=== PATIENT | male | born 1985 ===

== ENCOUNTER 2020-01-21 15:20 | Emergency (ER) | payer MEDICAID, OTHER, SELFPAY ==
[2020-01-21 15:49] VITALS: BP 155/89; PULSE 86; RESP 18; TEMP 37.7; O2SAT 100; BMI 38.7
--- NOTE | 2020-01-21 16:13 | XR_ITS ---
EXAMINATION: XR CHEST CLINICAL INFORMATION: Chest pain and cough COMPARISON: None TECHNIQUE: Frontal view of the chest was obtained. FINDINGS: The lung volumes are decreased. The lungs and pleural spaces are clear. Normal cardiac size. No acute osseous abnormality. IMPRESSION: Low lung volumes. The lungs are clear.
--- NOTE | 2020-01-21 16:14 | ECG_ITS ---
Test Reason : CHEST PAIN Blood Pressure : / mmHG Vent. Rate : 084 BPM Atrial Rate : 084 BPM P-R Int : 138 ms QRS Dur : 102 ms QT Int : 372 ms P-R-T Axes : 047 -02 023 degrees QTc Int : 439 ms Normal sinus rhythm RSR' or QR pattern in V1 suggests right ventricular conduction delay Nonspecific T wave abnormality Inferior leads Abnormal ECG No previous ECGs available Referred By: Ky Rodriguez Electronically Signed By:ANGIE POWELL MD
--- NOTE | 2020-01-21 17:01 | ED.CHESTPAIN ---
HPI - Chest Pain General Chief Complaint: Chest Pain Stated Complaint: fever, headache, chest pain Time Seen by Provider: 01/21/20 16:13 History of Present Illness HPI narrative: Patient presents to ED for headache, coughing, fever, chest pain, and chills. Patient states he was exposed to his neighbor who is positive for the COVID-19 virus. Patient states now having similar symptoms. patient states chest pain when he coughs only. Patient states chest pain with cough began yesterday. MD complaint: chest pain Related Data Allergies Allergy/AdvReac Type Severity Reaction Status Date / Time No Known Allergies Allergy Verified 01/21/20 15:52 [No Known Allergies*] Review of Systems Review of Systems: Yes all other systems are reviewed and are negative Constitutional: Constitutional: Reports as per HPI, Reports body ache(s), Reports chills, Reports fatigue and Reports fever(s) ENT: Reports system reviewed and no additional complaints, except as documented Cardiovascular: Cardiovascular: Reports no additional cardiovascular complaints, Denies dyspnea and Denies dyspnea on exertion Respiratory: Respiratory: Denies pain on inspiration, Reports pain with cough, Denies dyspnea and Denies dyspnea on exertion Gastrointestinal: Gastrointestinal: Reports as per HPI, Reports no additional gastrointestinal complaints and Denies abdominal pain Musculoskeletal: Musculoskeletal: Reports no additional musculoskeletal complaints Neurologic: Reports system reviewed and no additional complaints, except as documented and Reports as per HPI Psychiatric: Psychiatric: Reports no additional psychiatric complaints and Reports as per HPI Endocrine: Endocrine: Reports fatigue [facility] Past Medical History Medical History (Updated 01/21/20 @ 15:51 by Sandrita Churchill) Hernia Social History Social History Advance Directives: No Advance Directives Information Provided: No Physical Exam Vital Signs: Vital Signs: Vital Signs Temp Pulse Resp BP Pulse Ox 01/21/20 15:49 99.8 F 86 18 155/89 H 100 Body Mass Index 38.7 Const: General: cooperative, healthy appearing, comfortable, no acute distress, well developed, alert and awake Orientation/consciousness: oriented to person, oriented to place, oriented to time and patient oriented x3 HENMT: Head: Yes normal to inspection Eyes: General: appearance normal, both eyes and all related structures Neck: Neck: Yes normal visual inspection, Yes full ROM, Yes no lymphadenopathy, No anterior neck swelling, No lymphadenopathy, No positive Brudzinski's sign and No positive Kernig's sign Chest: Chest palpation & inspection: normal inspection of the chest and tenderness ( Mild mid sternal the left chest wall tenderness on palpation) Resp: Effort & Inspection: normal respiratory effort, able to speak in complete sentences, no audible wheezes, no cough, no grunting, not labored, no nasal flaring and no respiratory distress Auscultation: clear to auscultation bilaterally, no crackles, no rales, no rhonchi and no wheezes Cardio: Jugular venous distension: no JVD Rhythm: regular rhythm Heart sounds: S1 normal heart sound present and S2 normal heart sound present GI: Inspection: Yes normal to inspection, No abdominal wall ecchymosis, No Abdominal wall edema, No distended, No Kehr's sign positive and No G-tube present Percussion: Yes normal to percussion Auscultation: normal bowel sounds : General: No CVA tenderness and Yes no CVA tenderness Back/Spine/Pelvis: Back: no CVA tenderness, No CVA tenderness and No back tenderness Skin: General skin exam: no rashes or lesions noted Neuro: General: oriented to person, oriented to place, oriented to time, patient oriented x3, gait normal and CN's II-XI intact bilaterally Cranial nerves: Yes CN's II-XII intact bilaterally Extrem: General: Yes normal to inspection and Yes full ROM Course Course Course Narrative: history physical exam indicate URI. Patient will have labs and COVID swab sent. Chest x-ray also be ordered. Reevaluation(s) Reevaluation #1: Patient present not in any distress. Patient's chest x-ray came back normal. Awaiting rest of labs. Case signed out to RENEE CHRISTIAN Time: 17:59 Reevaluation #2: Rest of labs came back normal. Patient is safe for discharge. Time: 18:03 MDM - Chest Pain MDM Narrative Medical decision making narrative: labs negative for positive troponin. D-dimer negative. Patient's perc score 0. diagnosis is URI. Lab Data Result diagrams: 01/21/20 17:16 01/21/20 17:16 Labs: Lab Results 01/21/20 01/21/20 01/21/20 Range/Units 17:16 17:16 17:16 WBC 5.0 (4.8-10.8) X10*3/uL RBC 4.78 (4.60-5.80) X10*6/uL Hgb 14.2 (14.0-18.0) g/dl Hct 43.7 (42-52) % MCV 91.4 (80-98) fL MCH 29.7 (27.0-33.0) pg MCHC 32.5 (31.0-36.0) g/dl RDW 12.9 (11.0-16.0) % Plt Count 200 (160-400) X10*3/uL MPV 10.5 (9.4-12.4) fL Immature Gran % (Auto) 0.2 (0.0-0.4) % Neut % (Auto) 57.1 (45-73) % Lymph % (Auto) 26.0 (20-40) % [place] % (Auto) 15.9 H (2-11) % Eos % (Auto) 0.6 (0-4) % Baso % (Auto) 0.2 (0-2) % Lymph # (Auto) 1.3 (1.2-4.9) X10*3/uL [place] # (Auto) 0.8 (0.1-1.2) X10*3/uL Eos # (Auto) 0.0 (0.0-0.4) X10*3/uL Baso # (Auto) 0.0 (0.0-0.2) X10*3/uL Abs Immat Gran (auto) 0.01 (0.00-0.03) X10*3/uL Absolute Neuts (auto) 2.8 (2.0-8.3) X10*3/uL Absolute Nucleated RBC 0.000 (0.0-0.012) X10*3/uL Nucleated RBC % (auto) 0.0 (0.0-0.2) /100WBC PT 12.7 (10.8-13.0) SEC INR 1.1 (0.9-1.1) APTT 29.9 (24.1-38.0) SEC D-Dimer < 200 NG/ML Sodium (135-145) mmol/L Potassium (3.3-5.1) mmol/l Chloride (96-108) mmol/L Carbon Dioxide (22-29) mmol/L Anion Gap (12-20) BUN (9-16) mg/dL Creatinine (0.5-1.4) mg/dL Estim Creat Clear Calc Estimated GFR Random Glucose (60-115) mg/dL Calcium (8.4-10.2) mg/dL Total Bilirubin (0.0-1.0) mg/dL Direct Bilirubin (0.0-0.5) mg/dL AST (5-37) U/L ALT (0-40) U/L Alkaline Phosphatase (39-117) U/L Lactate Dehydrogenase (118-273) U/L Troponin I High Sens (<3.5-35.0) ng/L B-Natriuretic Peptide (<100) pg/mL Total Protein (6.5-8.0) g/dL Albumin (3.5-5.0) g/dL 01/21/20 01/21/20 Range/Units 17:16 17:16 WBC (4.8-10.8) X10*3/uL RBC (4.60-5.80) X10*6/uL Hgb (14.0-18.0) g/dl Hct (42-52) % MCV (80-98) fL MCH (27.0-33.0) pg MCHC (31.0-36.0) g/dl RDW (11.0-16.0) % Plt Count (160-400) X10*3/uL MPV (9.4-12.4) fL Immature Gran % (Auto) (0.0-0.4) % Neut % (Auto) (45-73) % Lymph % (Auto) (20-40) % [place] % (Auto) (2-11) % Eos % (Auto) (0-4) % Baso % (Auto) (0-2) % Lymph # (Auto) (1.2-4.9) X10*3/uL [place] # (Auto) (0.1-1.2) X10*3/uL Eos # (Auto) (0.0-0.4) X10*3/uL Baso # (Auto) (0.0-0.2) X10*3/uL Abs Immat Gran (auto) (0.00-0.03) X10*3/uL Absolute Neuts (auto) (2.0-8.3) X10*3/uL Absolute Nucleated RBC (0.0-0.012) X10*3/uL Nucleated RBC % (auto) (0.0-0.2) /100WBC PT (10.8-13.0) SEC INR (0.9-1.1) APTT (24.1-38.0) SEC D-Dimer NG/ML Sodium 141 (135-145) mmol/L Potassium 4.1 (3.3-5.1) mmol/l Chloride 108 (96-108) mmol/L Carbon Dioxide 24 (22-29) mmol/L Anion Gap 13 (12-20) BUN 9 (9-16) mg/dL Creatinine 0.94 (0.5-1.4) mg/dL Estim Creat Clear Calc 136.7 Estimated GFR > 60 Random Glucose 83 (60-115) mg/dL Calcium 8.7 (8.4-10.2) mg/dL Total Bilirubin 0.8 (0.0-1.0) mg/dL Direct Bilirubin 0.3 (0.0-0.5) mg/dL AST 19 (5-37) U/L ALT 14 (0-40) U/L Alkaline Phosphatase 53 (39-117) U/L Lactate Dehydrogenase 255 (118-273) U/L Troponin I High Sens < 3.5 (<3.5-35.0) ng/L B-Natriuretic Peptide 29 (<100) pg/mL Total Protein 6.8 (6.5-8.0) g/dL Albumin 3.9 (3.5-5.0) g/dL ECG Data ECG #1: Interpretation: Normal sinus rhythm. Normal EKG. Ventricular rate 84. MI interval 138.
[2020-01-21 17:23] LABS: MANUAL DIFF FLAG NO
[2020-01-21 17:26] LABS: Basophils Percent Auto 0.2 % (0-2); Eosinophils Percent Auto 0.6 % (0-4); Hematocrit 43.7 % (42-52); Hemoglobin 14.2 g/dl (14.0-18.0); Imm Gran Abs Auto 0.01 X10*3/uL (0.00-0.03); Imm Gran Pct Auto 0.2 % (0.0-0.4); Lymphocytes Absolute Auto 1.3 X10*3/uL (1.2-4.9); Mean Corpuscular HGB Conc 32.5 g/dl (31.0-36.0); Mean Corpuscular Hemoglobin 29.7 pg (27.0-33.0); Mean Corpuscular Volume 91.4 fL (80-98); Mean Platelet Volume 10.5 fL (9.4-12.4); Monocytes Absolute Auto 0.8 X10*3/uL (0.1-1.2); Monocytes Percent Auto 15.9 % (2-11); Neutrophils Absolute Auto 2.8 X10*3/uL (2.0-8.3); Neutrophils Percent Auto 57.1 % (45-73); Platelet Count 200 X10*3/uL (160-400); Red Blood Count 4.78 X10*6/uL (4.60-5.80); Red Cell Distribution Width 12.9 % (11.0-16.0)
[2020-01-21 17:31] LABS: INTERNATIONAL NORM RATIO 1.1 (0.9-1.1); Prothrombin Time 12.7 SEC (10.8-13.0)
[2020-01-21 17:34] LABS: Partial Thromboplastin Time 29.9 SEC (24.1-38.0)
--- NOTE | 2020-01-21 17:34 | PC.NURSE ---
per david galloway ok to not give 1l ns. pt pending lab results
[2020-01-21 17:35] LABS: D Dimer < 200 NG/ML
[2020-01-21 17:50] LABS: Alanine Aminotransferase 14 U/L (0-40); Albumin Level 3.9 g/dL (3.5-5.0); Alkaline Phosphatase 53 U/L (39-117); Anion Gap 13 (12-20); Aspartate Amino Transferase 19 U/L (5-37); Bilirubin Direct 0.3 mg/dL (0.0-0.5); Bilirubin Total 0.8 mg/dL (0.0-1.0); Blood Urea Nitrogen 9 mg/dL (9-16); Calcium 8.7 mg/dL (8.4-10.2); Carbon Dioxide 24 mmol/L (22-29); Chloride 108 mmol/L (96-108); Creatinine Clr Calc Pharmacy 136.7; Estimated Glomerular Filt Rate > 60; Glucose Random 83 mg/dL (60-115); Lactate Dehydrogenase 255 U/L (118-273); Potassium 4.1 mmol/l (3.3-5.1); Sodium 141 mmol/L (135-145); Total Protein 6.8 g/dL (6.5-8.0)
[2020-01-21 17:51] LABS: B Type Natriuretic Peptide 29 pg/mL (<100); Troponin-I High Sensitivity < 3.5 ng/L (<3.5-35.0)
[2020-01-21 18:05] LABS: Procalcitonin 0.03 ng/mL
[2020-01-21 18:09] LABS: Ferritin 103 ng/mL (20-250)
[2020-01-21 18:15] VITALS: BP 148/88; PULSE 88; RESP 16; TEMP 37.1; O2SAT 99
[2020-01-21 18:37] VITALS: PULSE 88
== END 2020-01-21 18:38 | disposition home or self-care (01) ==
PROVIDERS: Physician Assistant; Emergency Provider Emergency Medicine
DX: U07.1 COVID-19 (principal); M94.0 Chondrocostal junction syndrome [Tietze]
CPT/HCPCS: 36415; 71045; 80053; 80076; 82728; 83615; 83880; 84145; 84484; 85025; 85379; 85610; 85730; 87635; 93005; 96360; 99284

== ENCOUNTER 2020-02-12 15:22 | Outpatient (REF) | payer OTHER, MEDICAID, SELFPAY | END 2020-02-12 15:23 | disposition home or self-care (01) | LOC: HO.LAB 15:22 | PROVIDERS: Visit Provider Internal Medicine | DX: Z20.828 Contact with and (suspected) exposure to other viral communicable diseases (principal) | CPT/HCPCS: C9803; U0003 ==

== ENCOUNTER 2021-02-18 13:26 | Emergency (ER) | payer OTHER, SELFPAY ==
--- NOTE | ~2021-02-18 | XR_ITS ---
EXAMINATION: XR THORACIC SPINE CLINICAL INFORMATION: Fall, trauma, back pain COMPARISON: Chest radiographs 01/21/2020 TECHNIQUE: 4 views of the thoracic spine were obtained. FINDINGS: There is normal thoracic segmentation with 12 rib-bearing thoracic vertebrae of normal height and normal thoracic kyphosis. There is no visible thoracic vertebral fraction or fracture. No focal disc narrowing or spondylolisthesis or erosive changes. No paraspinal soft tissue swelling. XR/XR thoracic spine 3V IMPRESSION: Unremarkable examination.
--- NOTE | ~2021-02-18 | XR_ITS ---
EXAMINATION: XR LUMBOSACRAL SPINE CLINICAL INFORMATION: Fall, trauma, pain COMPARISON: Thoracic spine radiographs 02/18/2021 TECHNIQUE: Three views of the lumbosacral spine. FINDINGS: There is normal lumbar segmentation with 5 nonrib-bearing lumbar vertebrae of normal height and normal lumbar lordosis. There is no lumbar vertebral compression or fracture or spondylolisthesis. No disc narrowing or destructive process. The SI joints and visualized sacrum are unremarkable. There are surgical tacks overlying the anterior abdomen from prior mesh/hernia repair. XR/XR lumbar spine 2-3V IMPRESSION: Unremarkable examination.
[2021-02-18 14:01] VITALS: BP 155/89; PULSE 79; RESP 18; TEMP 36.6; O2SAT 98; BMI 36.9
--- NOTE | 2021-02-18 14:16 | ED_ITS ---
HPI - Back Pain/Injury General Chief Complaint: Back Pain/Injury Stated Complaint: Back pain Time Seen by Provider: 02/18/21 14:16 Source: patient Mode of arrival: ambulatory Limitations: no limitations History of Present Illness HPI Narrative: 35-year-old male presenting to the ER with left foot pain, middle and low back pain after a slip and fall while at work yesterday. 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 He fell onto his back and did not hit his head. He reports pain up and down his entire back worse in the middle and lower areas. No headache. He has some bilateral neck pain but nothing centrally. No arm pain, weakness, tingling. Pain is worse with movement. He has not taken any medications for his pain. He denies any numbness or tingling down his legs, no urinary incontinence, no fevers. No history of IV drug use. MD elicited complaint: back pain, back injury and fall Pertinent past history: recent trauma Onset (ago): day(s) (1) Timing: progressively worsening Severity: moderate Pain scale (0-10): 7 Quality: aching, spasming and throbbing Location: right lower back, right upper back, left upper back and left lower back Radiation: neck Exacerbating factors: movement Context: fall Associated symptoms: denies other symptoms Work related injury: Yes Related Data Previous Rx's Medication Instructions Recorded benzonatate 100 mg capsule 100 mg PO TID #15 cap 01/21/20 (Kodi Irvin) naproxen 500 mg tablet 500 mg PO BID PRN #20 tab 01/21/20 cyclobenzaprine 10 mg tablet 10 mg PO TID PRN #20 tab 02/18/21 ibuprofen 600 mg tablet 600 mg PO Q8H PRN #20 tab 02/18/21 lidocaine 5 % topical patch 1 patch TOPICAL DAILY #15 ea 02/18/21 Allergies Allergy/AdvReac Type Severity Reaction Status Date / Time No Known Allergies Allergy Verified 01/21/20 15:52 [No Known Allergies*] Review of Systems Review of Systems: Constitutional: No Fever, No Chills ENT/Mouth: No sore throat, No Rhinorrhea, No Swallowing Difficulty Cardiovascular: No Chest Pain, No SOB Gastrointestinal: No Nausea, No Vomiting, No Diarrhea, No abdominal Bryant Genitourinary: No Dysuria, No Urinary Frequency, No Hematuria Musculoskeletal: + joint pain, + Myalgias Skin: No Skin Lesions, No rash Neuro: No Weakness, No Numbness, No Dizziness, No Headache Heme/Lymph: No Bruising, No Lymphadenopathy PMF Past Medical History Medical History (Updated 02/18/21 @ 15:50 by RENEE Beltran) Hernia Social History Social History Alcohol intake: never Advance Directives: No Advance Directives Information Provided: No Physical Exam Vital Signs: Vital Signs: Last Vital Signs Temp 97.9 F 02/18/21 14:01 Pulse 79 02/18/21 14:01 Resp 18 02/18/21 14:01 BP 155/89 H 02/18/21 14:01 Pulse Ox 98 02/18/21 14:01 Body Mass Index 36.9 Appearance: Alert. Oriented X3. No acute distress. Eyes: Pupils equal, round and reactive to light. ENT: Pharynx normal. No dental trauma. Neck: Normal inspection. Neck supple. No midline tenderness or step-off deformity. Normal range of motion. Soft tissue tenderness and spasm bilaterally. CVS: Normal heart rate and rhythm. Pulses normal. Respiratory: No respiratory distress. Breath sounds normal. Abdomen: Soft and nontender. +BS x4 Back: Normal inspection. Bilateral paraspinous muscle tenderness and spasm appreciated from the middle thoracic to lower lumbar areas. No spinal tenderness throughout. Normal spinal range of motion. Skin: Skin warm and dry. Normal skin color. Normal skin turgor. No rashes. Extremities: Atraumatic x4 Neuro: Oriented X 3. No motor deficit. No sensory deficit. Ambulates with a slow but steady gait. Course Course Course Narrative: 35-year-old male presenting with back pain, left foot pain and neck pain after a slip and fall at work yesterday. His pain seems to be muscular. Doubt acute fracture. His left foot is normal in appearance and he is ambulatory. He has diffuse muscle tenseness today and spasm. Will treat with muscle relaxer and anti-inflammatory now. Will get x-rays to rule out fracture. Reevaluation(s) Reevaluation #1: X-rays are negative for acute fracture. Will treat symptomatically with muscle relaxer, anti-inflammatories and Lidoderm patches. Work note provided. Patient is stable for discharge home with supportive care plan to follow-up with his doctor as needed. Discharge Plan Discharge Clinical Impression: Strain of lumbar region Qualifiers: Encounter type: initial encounter Qualified Code(s): S39.012A - Strain of muscle, fascia and tendon of lower back, initial encounter Thoracic back pain Qualifiers: Chronicity: acute Back pain laterality: bilateral Qualified Code(s): M54.6 - Pain in thoracic spine Patient Disposition: Home, Self-Care Instructions: Low Back Strain (ED), Lower Back Exercises (ED) Additional Instructions: Your x-rays today were normal. Your pain is most likely due to muscle strain and spasm. No bending, lifting or twisting. Use ice several times per day for 20 minutes at a time for the next 48 hours and then change to heat. Take medications as prescribed to help with pain and discomfort. Follow up with your Primary Care Doctor this week. If your pain worsens, if you develop new numbness, tingling, weakness, loss of function or incontinence call 911 or come back to the ER right away for evaluation. Prescriptions: New cyclobenzaprine 10 mg tablet 10 mg PO TID PRN (Reason: muscle spasm) Qty: 20 RF: 0 lidocaine 5 % adhesive patch,medicated 1 patch topical DAILY Qty: 15 RF: 0 ibuprofen 600 mg tablet 600 mg PO Q8H PRN (Reason: pain) Qty: 20 RF: 0 No Action benzonatate [Tessalon Perles] 100 mg capsule 100 mg PO TID Qty: 15 RF: 0 naproxen 500 mg tablet 500 mg PO BID PRN (Reason: pain) Qty: 20 RF: 0 Referrals: [facility] [Provider Group] - 2 days Stand Alone Forms: Work/School Release Print Language: Hungarian
[2021-02-18] MEDS: Ketorolac Tromethamine 15 MG/ML VIAL 30 MG IM (14:57)
[2021-02-18] MEDS: Cyclobenzaprine HCl 10 MG TABLET PO (14:57)
[2021-02-18 15:56] VITALS: BP 127/83; PULSE 59; RESP 16; TEMP 36.5; O2SAT 99
== END 2021-02-18 16:03 | disposition home or self-care (01) ==
PROVIDERS: Emergency Provider Emergency Medicine Emergency Medical Services
DX: M54.50 Low back pain, unspecified (principal); M54.6 Pain in thoracic spine; M79.672 Pain in left foot; Z79.899 Other long term (current) drug therapy
CPT/HCPCS: 72072; 72100; 96372; 99284; J1885

== ENCOUNTER 2021-03-06 12:51 | Emergency (ER) | payer OTHER, SELFPAY ==
[2021-03-06 12:57] VITALS: BP 149/80; PULSE 79; RESP 18; TEMP 36.6; O2SAT 98; BMI 36.5
--- NOTE | 2021-03-06 13:21 | ED.BACK ---
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 Patient states approximately 2 weeks prior he had himself work. 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 Patient was put on Naprosyn patches without any relief. Patient still has pain and left-sided increases with range of motion or palpation. Patient denies any loss of bowel movements urinary incontinence. No other complaints at this time no new trauma to the back. Related Data Previous Rx's Medication Instructions Recorded benzonatate 100 mg capsule 100 mg PO TID #15 cap 01/21/20 (Kodi Irvin) naproxen 500 mg tablet 500 mg PO BID PRN #20 tab 01/21/20 cyclobenzaprine 10 mg tablet 10 mg PO TID PRN #20 tab 02/18/21 ibuprofen 600 mg tablet 600 mg PO Q8H PRN #20 tab 02/18/21 lidocaine 5 % topical patch 1 patch TOPICAL DAILY #15 ea 02/18/21 methocarbamol 750 mg tablet 750 mg PO BEDTIME #20 tab 03/06/21 naproxen 500 mg tablet,delayed 500 mg PO BID PRN #30 tab 03/06/21 release (EC-Naproxen) prednisone 20 mg tablet 40 mg PO DAILY 5 Days #10 tab 03/06/21 Allergies Allergy/AdvReac Type Severity Reaction Status Date / Time No Known Allergies Allergy Verified 01/21/20 15:52 [No Known Allergies*] Review of Systems Constitutional: Constitutional: Denies chills, Denies fever(s) and Denies weakness Cardiovascular: Cardiovascular: Denies chest pain and Denies dyspnea Respiratory: Respiratory: Denies cough and Denies dyspnea Gastrointestinal: Gastrointestinal: Denies diarrhea, Denies nausea and Denies vomiting Genitourinary: Genitourinary: Denies flank pain Musculoskeletal: Musculoskeletal: Reports back pain and Denies muscle weakness Neurologic: Denies radicular pain and Denies weakness Endocrine: Endocrine: Reports no additional endocrine complaints Hematologic/Lymphatic: Hematologic/Lymphatic: Reports no additional hematologic/lymphatic complaints [facility] Past Medical History Attestation statement: The following information was validated with the patient. Medical History Hernia Social History Social History Alcohol intake: never Advance Directives: No Advance Directives Information Provided: No Physical Exam Vital Signs: Vital Signs: Last Vital Signs Temp 98 F 03/06/21 12:57 Pulse 79 03/06/21 12:57 Resp 18 03/06/21 12:57 BP 149/80 H 03/06/21 12:57 Pulse Ox 98 03/06/21 12:57 BMI result Body Mass Index 36.5 vital signs have been reviewed as normal and appeared to be correct. Blood pressure normal. Heart rate normal. Respiration rate normal. Temperature normal. Oxygen saturation normal. Appearance: Alert. Oriented X3. No acute distress. Head: Normal external exam. Normocephalic. Atraumatic. Eyes: PERRLA. EOMI. Conjunctiva and sclera normal. Eyelids normal. ENT: Pharynx normal. Uvula midline. Moist mucous membranes. Neck: Soft full range of motion, no JVD CVS: Heart regular rate and rhythm no murmurs and rubs Respiratory: Breath sounds are clear to auscultation bilaterally. No accessory muscle use noted. Abdomen: Soft nontender no rebound or guarding positive bowel sounds Back: Positive paraspinal muscle tenderness lumbar spine left greater than right. tenderness extends left paraspinal muscle to the mid back Skin: Skin warm and dry. Normal skin color. No rashes ecchymosis Extremities: Patient is ambulatory moving all extremities purposely Neuro: Oriented X 3. No motor deficit. No sensory deficit. Reflexes normal. No focal deficit Course Course Course Narrative: Lumbar strain Disc disease Sciatica Muscle spasm Patient courage to follow-up with PCP. Patient denies history of diabetes will place patient on prednisone Naprosyn and Robaxin for nighttime Discharge Plan Discharge Clinical Impression: Strain of lumbar region Qualifiers: Encounter type: subsequent encounter Qualified Code(s): S39.012D - Strain of muscle, fascia and tendon of lower back, subsequent encounter Patient Disposition: Home, Self-Care Instructions: Back Pain (ED) Additional Instructions: Follow-up with PCP is recommended Medication as directed Prescriptions: New prednisone 20 mg tablet 40 mg PO DAILY 5 Days Qty: 10 RF: 0 methocarbamol 750 mg tablet 750 mg PO BEDTIME Qty: 20 RF: 0 naproxen [EC-Naproxen] 500 mg tablet,delayed release (DR/EC) 500 mg PO BID PRN (Reason: pain) Qty: 30 RF: 0 No Action benzonatate [Tessalon Perles] 100 mg capsule 100 mg PO TID Qty: 15 RF: 0 naproxen 500 mg tablet 500 mg PO BID PRN (Reason: pain) Qty: 20 RF: 0 cyclobenzaprine 10 mg tablet 10 mg PO TID PRN (Reason: muscle spasm) Qty: 20 RF: 0 lidocaine 5 % adhesive patch,medicated 1 patch topical DAILY Qty: 15 RF: 0 ibuprofen 600 mg tablet 600 mg PO Q8H PRN (Reason: pain) Qty: 20 RF: 0 Stand Alone Forms: Work/School Release Print Language: Citizen Of [place]
== END 2021-03-06 13:55 | disposition home or self-care (01) ==
PROVIDERS: Emergency Provider Emergency Medicine; PCP Family Medicine
DX: S39.012D Strain of muscle, fascia and tendon of lower back, subsequent encounter (principal); X58.XXXD Exposure to other specified factors, subsequent encounter
CPT/HCPCS: 99283

== ENCOUNTER → 2021-06-26 11:07 | Outpatient (BNVA) | payer OTHER, SELFPAY | PROVIDERS: PCP Family Medicine; Referring Provider Family Medicine; Visit Provider Surgery | DX: K42.9 Umbilical hernia without obstruction or gangrene (principal) | CPT/HCPCS: 99202 ==

== ENCOUNTER 2021-07-07 07:47 | Outpatient (REF) | payer OTHER, SELFPAY ==
[2021-07-07 10:43] LABS: MANUAL DIFF FLAG NO
[2021-07-07 10:45] LABS: Basophils Percent Auto 0.4 % (0-2); Eosinophils Absolute Auto 0.5 X10*3/uL (0.0-0.4); Eosinophils Percent Auto 6.8 % (0-4); Hematocrit 45.6 % (42.0-52.0); Hemoglobin 14.8 g/dl (14.0-18.0); Imm Gran Abs Auto 0.02 X10*3/uL (0.00-0.03); Imm Gran Pct Auto 0.3 % (0.0-0.4); Lymphocytes Absolute Auto 2.9 X10*3/uL (1.2-4.9); Lymphocytes Percent Auto 39.6 % (20-40); Mean Corpuscular HGB Conc 32.5 g/dl (31.0-36.0); Mean Corpuscular Volume 89.4 fL (80.0-98.0); Mean Platelet Volume 10.9 fL (9.4-12.4); Monocytes Absolute Auto 0.5 X10*3/uL (0.1-1.2); Monocytes Percent Auto 7.1 % (2-11); Neutrophils Absolute Auto 3.3 x10*3/uL (2.0-8.3); Neutrophils Percent Auto 45.8 % (45-73); Platelet Count 259 X10*3/uL (160-400); Red Cell Distribution Width 12.7 % (11.0-16.0); White Blood Count 7.2 X10*3/uL (4.8-10.8)
[2021-07-07 10:59] LABS: Alanine Aminotransferase 16 U/L (0-40); Alkaline Phosphatase 56 U/L (39-117); Anion Gap 11 (12-20); Aspartate Amino Transferase 13 U/L (5-37); Bilirubin Total 1.3 mg/dL (0.0-1.0); Blood Urea Nitrogen 12 mg/dL (9-16); Calcium 9.3 mg/dL (8.4-10.2); Carbon Dioxide 25 mmol/L (22-29); Chloride 109 mmol/L (96-108); Cholesterol 163 mg/dL; Estimated Glomerular Filt Rate > 60; Glucose Fasting 96 mg/dL (60-99); HDL Cholesterol 39 mg/dL; LDL Cholesterol Calculated 110 mg/dl; Sodium 141 mmol/L (135-145); Total Protein 6.9 g/dL (6.5-8.0); Triglycerides 74 mg/dL
[2021-07-07 11:25] LABS: TSH reflex Free T4 2.27 uIU/mL (0.32-4.0)
[2021-07-07 11:26] LABS: Erythrocyte Sedimentation Rate 3 MM/HR (0-15)
== END 2021-07-07 07:48 | disposition home or self-care (01) ==
LOC: HO.WFDLDS 07:47
PROVIDERS: Visit Provider Family Medicine
DX: Z00.00 Encounter for general adult medical examination without abnormal findings (principal); M54.9 Dorsalgia, unspecified; Z13.220 Encounter for screening for lipoid disorders; Z13.29 Encounter for screening for other suspected endocrine disorder
CPT/HCPCS: 36415; 80053; 80061; 84443; 85025; 85652

== ENCOUNTER 2022-10-26 08:52 | Emergency (ER) | payer OTHER, SELFPAY ==
--- NOTE | ~2022-10-26 | CT_ITS ---
EXAMINATION: CT ABDOMEN AND PELVIS WITH CONTRAST CLINICAL INFORMATION: Left lower quadrant abdominal pain COMPARISON: None available. TECHNIQUE: Multidetector volumetric images were obtained from the superior aspect of the liver through the pubic symphysis following administration 85 mL of Omnipaque 350 intravenous contrast. Sagittal and coronal reformatted images were obtained on the technologist's workstation. Oral contrast: No This CT examination was performed using dose optimization techniques as appropriate, variously including the following: *Automated exposure control *Adjustment of mA and/or kV according to patient size (this includes techniques or standardized protocols for targeted exams where dose is matched to indication/reason for exam; i.e. extremities or head) *Use of iterative reconstruction technique DLP: 819 mGy-cm FINDINGS: LUNG BASES: Bibasilar atelectasis. LIVER, GALLBLADDER, AND BILIARY TREE: The liver is normal in size and shape. Slightly decreased hepatic attenuation suggesting hepatic steatosis. Subcentimeter hypodense focus in the right hepatic lobe (series 4, image 164), too small to characterize though statistically representing a cyst. No biliary ductal dilatation is present. The gallbladder is unremarkable with no evidence of radiopaque gallstones, gallbladder wall thickening, or obvious pericholecystic inflammatory changes. PANCREAS: Unremarkable. SPLEEN: Unremarkable. ADRENAL GLANDS: Unremarkable. KIDNEYS AND URETERS: Subcentimeter hypodense focus involving the lateral aspect of the right renal interpolar region demonstrating fluid attenuation to small to characterize though statistically representing a cyst. The kidneys are normal in size, shape, and attenuation. No hydronephrosis, hydroureter, or calculi seen. No perinephric stranding. BLADDER: Unremarkable. GASTROINTESTINAL TRACT: The small and large bowel are unremarkable. The appendix is unremarkable. MESENTERY: Within the left lower quadrant anterior to the descending/sigmoid colon is a subtle ovoid structure with peripheral enhancement and adjacent inflammatory changes measuring approximately 3.2 cm possibly representing elements of epiploic appendagitis (series 3, image 70). Correlation with symptomatology. ABDOMINAL WALL: Fat filled ventral hernia. Anterior abdominal wall hernia mesh. Trace fat filled right inguinal hernia. LYMPH NODES: A few mildly prominent though nonenlarged bilateral inguinal lymph nodes are noted. VASCULAR: Abdominal aorta is nonaneurysmal. PELVIC VISCERA: Prostate measures 4.7 cm. Trace free fluid noted in the pelvis. OSSEOUS STRUCTURES: Nonspecific sclerotic foci in the left iliac bone possibly representing bone islands largest measuring up to [address]/CT abdomen pelvis w IV con IMPRESSION: Within the left lower quadrant anterior to the descending/sigmoid colon is a subtle ovoid structure with peripheral enhancement and adjacent inflammatory changes measuring approximately 3.2 cm possibly representing elements of epiploic appendagitis. Correlation with symptomatology.
--- NOTE | ~2022-10-26 | US_ITS ---
EXAMINATION: US SCROTUM CLINICAL INFORMATION: Bilateral testicular discomfort. COMPARISON: None available. TECHNIQUE: A sonogram of the scrotum was performed assessing khan-scale appearance and color Doppler flow. Spectral Doppler analysis of the arterial and venous flow were performed in the testes bilaterally. FINDINGS: RIGHT: Right testicle measures 4.2 x 2.1 x 2.6 cm, volume 12.1 mL. No focal testicular parenchymal lesions are visualized. Spectral Doppler analysis of the arterial and venous flow is increased in the right testis. Right epididymal head is normal in size. No right hydrocele or varicocele is seen. Right epididymal Doppler flow is mildly increased. LEFT: Left testicle measures 4.4 x 2.2 x 2.8 cm, volume 14.1 mL. No focal testicular parenchymal lesions are visualized. Spectral Doppler analysis of the arterial and venous flow is mildly increased in the left testis. Left epididymal head is normal in size. No left hydrocele or varicocele is seen. Left epididymal Doppler flow is normal. US/US scrotum IMPRESSION: 1. Bilateral testicular vascular flow is visualized. 2. Increased vascular flow of the right testicular parenchyma with mildly increased flow in the right epididymis suggesting epididymal orchitis. Correlation with symptomatology. 3. Mildly increased vascular flow of the left testicular parenchyma possibly representing early left orchitis.
--- NOTE | ~2022-10-26 | US_ITS ---
EXAMINATION: US SCROTUM CLINICAL INFORMATION: Bilateral testicular discomfort. COMPARISON: None available. TECHNIQUE: A sonogram of the scrotum was performed assessing khan-scale appearance and color Doppler flow. Spectral Doppler analysis of the arterial and venous flow were performed in the testes bilaterally. FINDINGS: RIGHT: Right testicle measures 4.2 x 2.1 x 2.6 cm, volume 12.1 mL. No focal testicular parenchymal lesions are visualized. Spectral Doppler analysis of the arterial and venous flow is increased in the right testis. Right epididymal head is normal in size. No right hydrocele or varicocele is seen. Right epididymal Doppler flow is mildly increased. LEFT: Left testicle measures 4.4 x 2.2 x 2.8 cm, volume 14.1 mL. No focal testicular parenchymal lesions are visualized. Spectral Doppler analysis of the arterial and venous flow is mildly increased in the left testis. Left epididymal head is normal in size. No left hydrocele or varicocele is seen. Left epididymal Doppler flow is normal. US/US scrotum doppler IMPRESSION: 1. Bilateral testicular vascular flow is visualized. 2. Increased vascular flow of the right testicular parenchyma with mildly increased flow in the right epididymis suggesting epididymal orchitis. Correlation with symptomatology. 3. Mildly increased vascular flow of the left testicular parenchyma possibly representing early left orchitis.
[2022-10-26 08:57] VITALS: BP 141/82; PULSE 91; RESP 12; TEMP 36.6; BMI 37.3
[2022-10-26 09:44] VITALS: BP 153/84; PULSE 91; RESP 18; TEMP 36.8; O2SAT 98
--- NOTE | 2022-10-26 09:55 | PC.NURSE ---
pt a&ox3. respirations even and unlabored. skin appropriate for ethnicity. abdomen soft with hypoactive bowel sounds in all 4 quadrants with tenderness mostly in the right lower quadrant but some pain in the left lower quadrant. pt reports lower abdominal pain and flank pain for 3 days as well as difficulty urinating. pt denies n/v and blood in urine.
--- NOTE | 2022-10-26 09:57 | ED_ITS ---
HPI - Abdominal Pain General Chief Complaint: Abdominal Pain Stated Complaint: Lower abd pain Time Seen by Provider: 10/26/22 09:07 Source: patient Mode of arrival: ambulatory Limitations: no limitations History of Present Illness HPI narrative: This is a 37-year-old male history of hypertension, umbilical hernia, obesity presenting to the emergency department for evaluation of left lower quadrant pain for the past 3 days worsening. Patient reports constant stabbing left lower quadrant pain and associated dysuria, patient tells me that pain is intolerable at this time worse with palpation. Patient also reports poor p.o. intake secondary to pain in associated nausea. Patient does mention that at times his pain radiates into his testicles bilaterally. Denies vomiting, chest pain, shortness of breath, fevers, chills, urinary frequency, urgency, changes in bowel habits, . no history of kidney stones or diverticulitis Related Data Previous Rx's Medication Instructions Recorded benzonatate 100 mg capsule 100 mg PO TID cough #15 caps 01/21/20 (Kodi Irvin) cyclobenzaprine 10 mg tablet 10 mg PO BEDTIME PRN muscle spasm 06/02/21 7 days #20 tabs losartan 50 mg tablet 50 mg PO DAILY 30 days #30 tabs 06/02/21 meloxicam 15 mg tablet 15 mg PO DAILY 30 days #30 tabs 06/02/21 doxycycline hyclate 100 mg capsule 100 mg PO BID 10 days #20 caps 10/26/22 ketorolac 10 mg tablet 10 mg PO TID PRN pain 5 days #15 10/26/22 tabs Allergies Allergy/AdvReac Type Severity Reaction Status Date / Time No Known Allergies Allergy Verified 07/08/21 14:43 [No Known Allergies*] Review of Systems Review of Systems Constitutional : No Weight loss, No Fever, No Chills, No Fatigue, No Malaise ENT/Mouth : No sore throat, No Rhinorrhea Eyes: No Eye Pain, No Swelling, No Redness Cardiovascular : No Chest Pain, No SOB, No Dyspnea on Exertion, No Orthopnea, No Edema, No Palpitations Respiratory : No Cough, No Sputum, No Wheezing Gastrointestinal : + Nausea, No Vomiting, No Diarrhea, No Constipation, + abdominal Pain, No Hematochezia, No Melena Genitourinary : No Dysuria, No Urinary Frequency, No Hematuria, Musculoskeletal : No joint pain, No Myalgias, No Joint Swelling Skin : No Skin Lesions, No rash Neuro : No Weakness, No Numbness, No Dizziness, No Headache Psych : No Anxiety/Panic, No Depression All other systems reviewed and are negative Yes all other systems are reviewed and are negative [facility] Past Medical History Attestation statement: The following information was validated with the patient. Source: old records reviewed and nursing notes reviewed Medical History Hernia Hypertension Morbid obesity with body mass index (BMI) of 40.0 or higher Recurrent umbilical hernia Surgical History History of hernia surgery Social History Social History Housing: Apartment Alcohol intake: never Patient Tobacco Use Status: Never used Tobacco Smoked in Last 30 Days: No e-Cigarette/Vaping Use: Never Used Second Hand Smoke Exposure: No Use of substances other than those prescribed or required for medical reasons: No Advance Directives: No Advance Directives Information Provided: No service: No Current occupational status: employed Current occupational exposures/hazards: No Cognitive needs: No Hearing needs: No Vision needs: No Physical Exam ED Vital Signs: Vital Signs - 24 hr 10/26/22 08:57 10/26/22 09:44 10/26/22 11:17 Temperature 97.9 F 98.3 F 98.2 F Pulse Rate 91 91 63 Respiratory Rate 12 18 18 Blood Pressure 141/82 H 153/84 H 136/87 Pulse Oximetry 98 99 Oxygen Delivery Method Room Air Room Air Room Air BMI result Body Mass Index 37.3 vss Appearance: Alert.? Oriented X3.? No acute distress.? Head: Normocephalic, atraumatic, no step-offs or deformities Eyes: Pupils equal, round and reactive to light.? Neck: Normal inspection.? Neck supple.? CVS: Normal heart rate and rhythm.? Pulses normal.? Respiratory: No respiratory distress.? Breath sounds normal.? Abdomen: Soft and + left lower quadrant tenderness to palpation..? Skin: Skin warm and dry.? Normal skin color.? Normal skin turgor.? Extremities: No lower extremity edema.? No calf ttp. 5/5 strength to bilateral upper and lower extremities Neuro: Oriented X 3.? No motor deficit.? No sensory deficit. CN 2-12 intact Course Reevaluation(s) Reevaluation #1: CBC within normal limits. Chemistry unremarkable. Lipase within normal limits. Ultrasound of scrotum with bilateral testicular vascular flow, no signs of torsion. Increased vascular flow the right testicular parenchyma with mildly increased flow in the right epididymis suggesting epididymal orchitis, patient doesnt think he has an STD but will treat with Ceftriaxone and doxy to cover prophylacticly. Patient also has mildly increased vascular flow on the left testicular parenchyma possibly representing early left orchitis. Will give IM ceftriaxone here in treat with doxycycline for home. Waiting on CT abdomen and pelvis. Will also give him follow-up to Urology. Time: 12:30 Reevaluation #2: CT abdomen and pelvis revealing left lower quadrant anterior to the descending sigmoid colon subtle ovoid structure with peripheral enhancement adjacent inflammatory changes could represent epiploic appendagitis, discussed this case w/ my attending agrees w/ dx and tx plan. patient feeling better after Toradol. Will discharge him home on same. Will discharge with doxycycline for orchitis. Educated patient on diagnosis and treatment plan, answered all question, patient verbalizes understanding. At this time patient will be discharged home, advised to return with new or worsening symptoms. Educated on worrisome signs and symptoms and when to return. At this time I feel comfortable discharge home. Time: 13:11 Reevaluation #3: at time of discharge patient reports significant symptomatic improvement with Toradol. Well appearing. Vital stable, abdomen no longer tender to palpation. Medical Decision Making Medical Decision Making [facility] Narrative: 1001 37-year-old male presents with left lower quadrant pain x3 days with associated nausea, reports dysuria and bilateral testicular pain physical exam with significant left lower quadrant tenderness to palpation. Likely diverticulitis or kidney stone. Will rule out Testicular torsion although less likely. unlikely acute abdomen. No signs of appendicitis, cholecystitis or pancreatitis. Also rule out UTI. He has no concern for STD/ STI unlikely proctitis, orchitis epididymitis. Plan labs, imaging, urine. Differential Diagnosis Differential Diagnoses: The differential diagnosis associated with the presentation includes Likely diverticulitis or kidney stone. Will rule out Testicular torsion although less likely. unlikely acute abdomen. No signs of appendicitis, cholecystitis or pancreatitis. Also rule out UTI. He has no concern for STD/ STI unlikely proctitis, orchitis epididymitis. Admission/Observation Consideration of admission/observation: Escalation of care including admission/observation considered unlikely Lab Data MDM Lab Attestation statement: I reviewed the patient's lab results. 10/26/22 10:22 10/26/22 10:22 Labs: Lab Results 10/26/22 10/26/22 10/26/22 Range/Units 10:22 10:22 10:22 WBC 9.2 (4.8-10.8) X10*3/uL RBC 4.64 (4.60-5.80) X10*6/uL Hgb 13.6 L (14.0-18.0) g/dl Hct 42.0 (42.0-52.0) % MCV 90.5 (80.0-98.0) fL MCH 29.3 (27.0-33.0) pg MCHC 32.4 (31.0-36.0) g/dl RDW 13.5 (11.0-16.0) % Plt Count 231 (160-400) X10*3/uL MPV 10.6 (9.4-12.4) fL Immature Gran % (Auto) 0.3 (0.0-0.4) % Neut % (Auto) 59.8 (45-73) % Lymph % (Auto) 28.3 (20-40) % [place] % (Auto) 9.8 (2-11) % Eos % (Auto) 1.5 (0-4) % Baso % (Auto) 0.3 (0-2) % Lymph # (Auto) 2.6 (1.2-4.9) X10*3/uL [place] # (Auto) 0.9 (0.1-1.2) X10*3/uL Eos # (Auto) 0.1 (0.0-0.4) X10*3/uL Baso # (Auto) 0.0 (0.0-0.2) X10*3/uL Abs Immat Gran (auto) 0.03 (0.00-0.03) X10*3/uL Absolute Neuts (auto) 5.5 (2.0-8.3) x10*3/uL Absolute Nucleated RBC 0.000 (0.0-0.012) X10*3/uL Nucleated RBC % (auto) 0.0 (0.0-0.2) /100WBC Sodium 141 (135-145) mmol/L Potassium 3.9 (3.3-5.1) mmol/L Chloride 110 H (96-108) mmol/L Carbon Dioxide 26 (22-29) mmol/L Anion Gap 9 L (12-20) BUN 10 (9-16) mg/dL Creatinine 0.87 (0.5-1.4) mg/dL Estim Creat Clear Calc 149.5 Estimated GFR > 60 Random Glucose 99 (60-115) mg/dL Calcium 9.1 (8.4-10.2) mg/dL Magnesium 2.0 (1.6-2.6) mg/dL Total Bilirubin 0.9 (0.0-1.0) mg/dL AST 13 (5-37) U/L ALT 17 (0-40) U/L Alkaline Phosphatase 48 (39-117) U/L Total Protein 6.8 (6.5-8.0) g/dL Albumin 3.7 (3.5-5.0) g/dL Lipase 15 (8-78) U/L Urine Color Urine Appearance Urine pH (5.0-9.0) Ur Specific [place] (1.005-1.025) Urine Protein (Neg-Trace) mg/dL Urine Glucose (UA) (Negative) mg/dL Urine Ketones (Negative) mg/dL Urine Blood (Negative) Urine Nitrite (Negative) Ur Leukocyte Esterase (Negative) Urine RBC (0-2) /HPF Urine WBC (0-5) /HPF Ur Squamous Epith Cells (0-2) /HPF Calcium Oxalate Crystal Urine Bacteria (None Seen) Hyaline Casts (0-2) /LPF COVID-19 (HALLE) Negative (Negative) COVID-19 Clin Com See Note 10/26/22 Range/Units 10:22 WBC (4.8-10.8) X10*3/uL RBC (4.60-5.80) X10*6/uL Hgb (14.0-18.0) g/dl Hct (42.0-52.0) % MCV (80.0-98.0) fL MCH (27.0-33.0) pg MCHC (31.0-36.0) g/dl RDW (11.0-16.0) % Plt Count (160-400) X10*3/uL MPV (9.4-12.4) fL Immature Gran % (Auto) (0.0-0.4) % Neut % (Auto) (45-73) % Lymph % (Auto) (20-40) % [place] % (Auto) (2-11) % Eos % (Auto) (0-4) % Baso % (Auto) (0-2) % Lymph # (Auto) (1.2-4.9) X10*3/uL [place] # (Auto) (0.1-1.2) X10*3/uL Eos # (Auto) (0.0-0.4) X10*3/uL Baso # (Auto) (0.0-0.2) X10*3/uL Abs Immat Gran (auto) (0.00-0.03) X10*3/uL Absolute Neuts (auto) (2.0-8.3) x10*3/uL Absolute Nucleated RBC (0.0-0.012) X10*3/uL Nucleated RBC % (auto) (0.0-0.2) /100WBC Sodium (135-145) mmol/L Potassium (3.3-5.1) mmol/L Chloride (96-108) mmol/L Carbon Dioxide (22-29) mmol/L Anion Gap (12-20) BUN (9-16) mg/dL Creatinine (0.5-1.4) mg/dL Estim Creat Clear Calc Estimated GFR Random Glucose (60-115) mg/dL Calcium (8.4-10.2) mg/dL Magnesium (1.6-2.6) mg/dL Total Bilirubin (0.0-1.0) mg/dL AST (5-37) U/L ALT (0-40) U/L Alkaline Phosphatase (39-117) U/L Total Protein (6.5-8.0) g/dL Albumin (3.5-5.0) g/dL Lipase (8-78) U/L Urine Color Yellow Urine Appearance Clear Urine pH 5.5 (5.0-9.0) Ur Specific [place] 1.025 (1.005-1.025) Urine Protein Negative (Neg-Trace) mg/dL Urine Glucose (UA) Negative (Negative) mg/dL Urine Ketones Trace (Negative) mg/dL Urine Blood Negative (Negative) Urine Nitrite Negative (Negative) Ur Leukocyte Esterase Negative (Negative) Urine RBC 0-2 (0-2) /HPF Urine WBC 0-5 (0-5) /HPF Ur Squamous Epith Cells 0-2 (0-2) /HPF Calcium Oxalate Crystal Present Urine Bacteria None Seen (None Seen) Hyaline Casts 0-2 (0-2) /LPF COVID-19 (HALLE) (Negative) COVID-19 Clin Com Independent Interpretation I performed an independent interpretation of an: Ultrasound ( US/US scrotum IMPRESSION: 1. Bilateral testicular vascular flow is visualized. 2. Increased vascular flow of the right testicular parenchyma with mildly increased flow in the right epididymis suggesting epididymal orchitis. Correlation with symptom atology. 3. Mildly increased vascular flow of th) and CT Scan (CT/CT abdomen pelvis w IV con IMPRESSION: Within the left lower quadrant anterior to the descending/sigmoid colon is a subtle ovoid structure with peripheral enhancement and adjacent inflammatory changes measuring approximately 3.2 cm possibly representing elements of epiploic appendagitis. Correlat) Radiology Impression Discussion of test interpretation with radiology: I have reviewed the radiologist's reading. Core Measures AMI core measures followed: Yes Measure exclusions: not indicated Medications Administered Discontinued Medications Generic Name Dose Route Start Last Admin Trade Name Zanderq PRN Reason Stop Dose Admin Ceftriaxone Sodium 500 mg/ 0 mg 10/26/22 12:28 10/26/22 13:43 Lidocaine HCl 1 ml IM 10/26/22 12:29 1 kit ONCE ONE Administration Iohexol 85 ml 10/26/22 11:46 10/26/22 11:46 Iohexol 350 Mg/Ml 100 Ml Infus..Btl IV 10/26/22 11:47 85 ml ONCE ONE Administration Ketorolac Tromethamine 30 mg 10/26/22 11:11 10/26/22 11:21 Ketorolac Tromethamine 15 Mg/Ml Vial IVPUSH 10/26/22 11:12 30 mg ONCE ONE Administration Critical Care Time Critical Care Time Critical Care Time: Yes Total Critical Care Time: 35 Attestation: I attest to this time spent taking care of the patient, obtaining history, physical, reviewing labs, imaging, speaking to my attending Discharge Plan Discharge Clinical Impression: Pain in both testicles, Abdominal pain, LLQ Patient Disposition: Home, Self-Care Instructions: Testicle Pain (ED), Abdominal Pain (ED), Orchitis (ED), Scrotal Pain (ED) Additional Instructions: Take your medications as prescribed. If you were prescribed antibiotics today, it is important that you take your medication to their entirety, do not skip any doses, do not finish them early. Follow-up with your primary care provider this week. please follow-up with urology information below. Return to the emergency department with new or worsening symptoms. Such as fevers, chills, chest pain, shortness of breath, nausea, vomiting, dizziness, headache, vision changes, lethargy In case of emergency call 911 Toradol has been sent to your pharmacy, you tolerated this well in the department. Please take this as prescribed do not take this with ibuprofen, or other NSAIDs, do not mix this with alcohol. Side effects of this medication including increased risk for bleeding and possible kidney injury. [facility] seg?n lo prescrito. Si le recetaron antibi?ticos hoy, es importante que tome moreira medicamento en moreira totalidad, no se salte ninguna dosis, no los termine antes de tiempo. Seguimiento con moreira proveedor de atenci?n primaria esta semana. gisela un seguimiento con la informaci?n de urolog?a a continuaci?n. Regrese al departamento de emergencias con s?ntomas nuevos o que empeoran. [place] fiebre, escalofr?os, dolor de pecho, dificultad para respirar, n?useas, v?mitos, mareos, dolor de shawn, cambios en la visi?n, letargo En elsy de emergencia llama al 911 Toradol willson sido enviado a moreira farmacia, lo tyrone? casie en el departamento. T?sanders seg?n lo recetado, no lo tome con ibuprofeno u otros JB, no lo mezcle con alcohol. Los efectos secundarios de [facility] medicamento incluyen un mayor riesgo de sangrado y posible lesi?n renal. CT/CT abdomen pelvis w IV con IMPRESSION: Within the left lower quadrant anterior to the descending/sigmoid colon is a subtle ovoid structure with peripheral enhancement and adjacent inflammatory changes measuring approximately 3.2 cm possibly representing elements of epiploic appendagitis. Correlation with symptomatology. US/US scrotum doppler IMPRESSION: 1. Bilateral testicular vascular flow is visualized. 2. Increased vascular flow of the right testicular parenchyma with mildly increased flow in the right epididymis suggesting epididymal orchitis. Correlation with symptomatology. 3. Mildly increased vascular flow of the left testicular parenchyma possibly representing early left orchitis. Prescriptions: New doxycycline hyclate 100 mg capsule 100 mg PO BID 10 Days Qty: 20 0RF ketorolac 10 mg tablet 10 mg PO TID PRN (Reason: pain) 5 Days Qty: 15 0RF No Action benzonatate [Tessalon Perles] 100 mg capsule 100 mg PO TID Qty: 15 0RF cyclobenzaprine 10 mg tablet 10 mg PO BEDTIME PRN (Reason: muscle spasm) 7 Days Qty: 20 0RF meloxicam 15 mg tablet 15 mg PO DAILY 30 Days Qty: 30 2RF losartan 50 mg tablet 50 mg PO DAILY 30 Days Qty: 30 1RF Referrals: [facility] [Provider Group] - 2 days Stand Alone Forms: Work/School Release Interventions: ED Discharge Assessment Last Done: 10/26/22 13:51
[2022-10-26 10:33] LABS: MANUAL DIFF FLAG NO
[2022-10-26 10:34] LABS: Basophils Percent Auto 0.3 % (0-2); Eosinophils Absolute Auto 0.1 X10*3/uL (0.0-0.4); Eosinophils Percent Auto 1.5 % (0-4); Hemoglobin 13.6 g/dl (14.0-18.0); Imm Gran Abs Auto 0.03 X10*3/uL (0.00-0.03); Imm Gran Pct Auto 0.3 % (0.0-0.4); Lymphocytes Absolute Auto 2.6 X10*3/uL (1.2-4.9); Lymphocytes Percent Auto 28.3 % (20-40); Mean Corpuscular HGB Conc 32.4 g/dl (31.0-36.0); Mean Corpuscular Hemoglobin 29.3 pg (27.0-33.0); Mean Corpuscular Volume 90.5 fL (80.0-98.0); Mean Platelet Volume 10.6 fL (9.4-12.4); Monocytes Absolute Auto 0.9 X10*3/uL (0.1-1.2); Monocytes Percent Auto 9.8 % (2-11); Neutrophils Absolute Auto 5.5 x10*3/uL (2.0-8.3); Neutrophils Percent Auto 59.8 % (45-73); Platelet Count 231 X10*3/uL (160-400); Red Blood Count 4.64 X10*6/uL (4.60-5.80); Red Cell Distribution Width 13.5 % (11.0-16.0); White Blood Count 9.2 X10*3/uL (4.8-10.8)
[2022-10-26 10:36] LABS: Appearance Urine Clear; Color Urine Yellow; Glucose Urine UA Negative (Negative); Leukocyte Esterase Urine Negative (Negative); Nitrite Urine Negative (Negative); PH 5.5 (5.0-9.0); Specific Gravity - Urine 1.025 (1.005-1.025); Urine Blood Negative (Negative); Urine Ketones Trace mg/dL (Negative); Urine Protein Negative (Neg-Trace)
[2022-10-26 10:48] LABS: COVID-19 Test Negative (Negative); IDNOW Serial# 9DB6401D
[2022-10-26 10:51] LABS: Alanine Aminotransferase 17 U/L (0-40); Albumin Level 3.7 g/dL (3.5-5.0); Alkaline Phosphatase 48 U/L (39-117); Anion Gap 9 (12-20); Aspartate Amino Transferase 13 U/L (5-37); Bilirubin Total 0.9 mg/dL (0.0-1.0); Blood Urea Nitrogen 10 mg/dL (9-16); Calcium 9.1 mg/dL (8.4-10.2); Carbon Dioxide 26 mmol/L (22-29); Chloride 110 mmol/L (96-108); Creatinine Clr Calc Pharmacy 149.5; Estimated Glomerular Filt Rate > 60; Glucose Random 99 mg/dL (60-115); Lipase 15 U/L (8-78); Potassium 3.9 mmol/L (3.3-5.1); Sodium 141 mmol/L (135-145); Total Protein 6.8 g/dL (6.5-8.0)
[2022-10-26 11:10] LABS: Bacteria Urine None Seen (None Seen); Calcium Oxalate Crystals Urine Present; Hyaline Casts Urine 0-2 /LPF (0-2); RBC Urine 0-2 /HPF (0-2); Squamous Epithelial Cell Urine 0-2 /HPF (0-2); WBC Urine 0-5 /HPF (0-5)
[2022-10-26 11:17] VITALS: BP 136/87; PULSE 63; RESP 18; TEMP 36.8; O2SAT 99
[2022-10-26] MEDS: Ketorolac Tromethamine 15 MG/ML VIAL 30 MG IVPUSH (11:21)
[2022-10-26] MEDS: iohexoL 350 MG/ML 100 ML INFUS..BTL 85 ML IV (11:46)
[2022-10-26] MEDS: cefTRIAXone sodium 500 MG, Lidocaine HCl 1 % MPF 1 ML IM (13:43)
== END 2022-10-26 13:53 | disposition home or self-care (01) ==
PROVIDERS: Physician Assistant; Emergency Provider Emergency Medicine; PCP Family Medicine
DX: N50.812 Left testicular pain (principal); N50.811 Right testicular pain; R10.32 Left lower quadrant pain; Z20.822 Contact with and (suspected) exposure to COVID-19; I10 Essential (primary) hypertension
CPT/HCPCS: 74177; 76870; 80053; 81001; 83690; 83735; 85025; 87635; 93975; 96372; 96374; 99284; J0696; J1885; Q9967

== ENCOUNTER 2024-01-24 14:33 | Emergency (ER) | payer OTHER, SELFPAY ==
--- NOTE | ~2024-01-24 | XR_ITS ---
EXAMINATION: XR CHEST 2 VIEW CLINICAL INFORMATION: Chest pain, bilateral COMPARISON: 01/21/2020 TECHNIQUE: PA and lateral views of the chest obtained. FINDINGS: The lungs are clear. There are no pleural effusions. The cardiomediastinal silhouette is normal. XR/XR chest 2V IMPRESSION: No acute cardiopulmonary disease. Electronically signed by: Brian Dempsey MD 01/24/2024 04:38 PM EDT
--- NOTE | 2024-01-24 14:34 | ECG_ITS ---
Test Reason : chest pain Blood Pressure : / mmHG Vent. Rate : 079 BPM Atrial Rate : 079 BPM P-R Int : 146 ms QRS Dur : 110 ms QT Int : 398 ms P-R-T Axes : 051 -01 021 degrees QTc Int : 456 ms Normal sinus rhythm with sinus arrhythmia Normal ECG When compared with ECG of 21-JAN-2020 15:45, No significant change was found Referred By: Gisela Guerrero Electronically Signed By:Ford Machuca
[2024-01-24 14:46] VITALS: BP 158/76; PULSE 83; RESP 16; TEMP 36.2; O2SAT 98; BMI 39.6
--- NOTE | 2024-01-24 14:55 | ED_ITS ---
HPI - Chest Pain General Chief Complaint: Chest Pain Stated Complaint: Chest pain Time Seen by Provider: 01/24/24 19:50 Source: patient Mode of arrival: ambulatory Limitations: language barrier (Patient's 1st language is Honduran, he speaks some Hebrew, [facility] procurement buyer used) History of Present Illness ED Provider: Dr. Melvin Corral HPI narrative: 38-year-old male with a history of low HDL, hypertension, back pain who presents emergency department for evaluation of intermittent, left-sided chest pain. The patient states that the pain started approximately 15 days prior. He states that it came on gradually while he was at rest. He describes the pain is a sharp pain and he points to a discrete area underneath his left breast. He states the pain is worse with movement and with breathing. The pain is not triggered by exertion. He states the pain will last 3-4 days then resolve. Patient was been taking ibuprofen 400 mg 3 times a day as needed for the pain with no relief. He states that he has an occasional cough. He does feel short of breath. He denied fever, chills, rhinorrhea, sore throat, nausea, vomiting, diarrhea, myalgias arthralgias. He denied any pain or swelling of his extremities. He denied any recent long trips. Related Data Previous Rx's ?Medication ?Instructions ?Recorded benzonatate 100 mg capsule 100 mg PO TID cough #15 caps 01/21/20 (Kodi Irvin) cyclobenzaprine 10 mg tablet 10 mg PO BEDTIME PRN muscle spasm 06/02/21 7 days #20 tabs losartan 50 mg tablet 50 mg PO DAILY 30 days #30 tabs 06/02/21 meloxicam 15 mg tablet 15 mg PO DAILY 30 days #30 tabs 06/02/21 doxycycline hyclate 100 mg capsule 100 mg PO BID 10 days #20 caps 10/26/22 ketorolac 10 mg tablet 10 mg PO TID PRN pain 5 days #15 10/26/22 tabs morphine 15 mg immediate release 15 mg PO Q8H PRN pain #10 tabs 01/24/24 tablet Allergies Allergy/AdvReac Type Severity Reaction Status Date / Time No Known Allergies Allergy Verified 01/24/24 14:53 [No Known Allergies*] Review of Systems 2 Review of Systems: Yes all other systems are reviewed and are negative PMFSH Past [facility] Narrative: Social history: He denies tobacco, alcohol and drug use. Medical History Hernia Hypertension Morbid obesity with body mass index (BMI) of 40.0 or higher Recurrent umbilical hernia Surgical History History of hernia surgery Social History Social History Housing: Apartment Alcohol intake: never Patient Tobacco Use Status: Never used Tobacco Smoked in Last 30 Days: No e-Cigarette/Vaping Use: Never Used Second Hand Smoke Exposure: No Advance Directives: No Advance Directives Information Provided: Yes Do you have a plan to hurt others: No Plan service: No Current occupational status: employed Current occupational exposures/hazards: No Cognitive needs: No Hearing needs: No Vision needs: No Physical Exam 2 Vital Signs: Vital Signs: Last Vital Signs Temp 98.2 F 01/24/24 20:29 Pulse 59 01/24/24 20:29 Resp 16 01/24/24 20:29 BP 145/77 H 01/24/24 20:29 Pulse Ox 99 01/24/24 20:29 O2 Del Method Room Air 01/24/24 20:29 BMI result Body Mass Index 39.6 Vital signs revealed an elevated blood pressure of 145/77 otherwise unremarkable Exam: General: Awake, alert in no distress Head: Normocephalic, atraumatic EENT: PERRL, Lids normal, sclera normal, conjunctiva normal, nose normal , ears normal, throat without erythema or exudates Neck: Supple, no adenopathy Lung: breath sounds symmetric, no wheezing, rales or rhonchi Chest: symmetric movement, patient has a small area underneath his left breast which is exquisitely tender to palpation. There is no erythema or increased were in this area there is no lesions. There is no crepitus noted. Heart: regular rate and rhythm, normal S1, S2 no murmurs or rubs Abdomen: soft, non-tender, nondistended, normal bowel sounds Back: no vertebral tenderness, no CVAT Extremities: no deformities, moves all extremities symmetrically Neuro: Awake, alert, oriented, normal speech, cranial nerves intact, moves all extremities symmetrically Psych: Pleasant, cooperative Course Course Course Narrative: RME performed by Gisela Guerrero PA-C. Patient is a 38 year old assigned male at presenting to the emergency department with chest pain. Patient states that over the last 15 days he has had chest pain that is worse with deep inspiration. Detailed physical exam and review of systems are deferred to the bindery operator. EKG, labs, imaging, and swabs ordered. Patient placed back in the waiting room pending room availability and results. Medical Decision Making Medical Decision Making [facility] Narrative: 38-year-old male with a history of low HDL, hypertension, back pain who presents emergency department for evaluation of intermittent, left-sided chest pain, worse with movement with associated shortness of breath and dyspnea on exertion. Patient denied fever, chills, sore throat or cough. Vital signs revealed an elevated blood pressure otherwise was unremarkable. Differential diagnosis: ?Includes but is not limited to myocardial infarction, myocardial ischemia, pneumonia, costochondritis, chest wall pain, anemia, electrolyte abnormalities Course: My interpretation patient's laboratory evaluation is as follows: CBC was normal. CMP revealed an elevated glucose of 113 and elevated chloride of 110. Patient's bilirubin is elevated 1.3-this is chronic. COVID-19, influenza and RSV were negative. Patient's troponin was below detectable limits. Patient's two view chest x-ray was unremarkable. Twelve EKG was unremarkable. Patient's presentation, laboratory evaluation and physical exam findings are consistent with chest wall musculoskeletal pain. I did discuss this with the patient. The patient was advised to take ibuprofen and Tylenol and for pain not relieved by these medications he was prescribed morphine. He was given printed and verbal instructions and discharged home. Admission/Observation Consideration of admission/observation: Escalation of care including admission/observation considered (Yes) Lab Data [facility] Lab Attestation statement: I reviewed the patient's lab results. 01/24/24 15:12 01/24/24 15:12 Labs: Lab Results 01/24/24 Range/Units 15:12 WBC 7.6 (4.8-10.8) X10*3/uL RBC 4.91 (4.60-5.80) X10*6/uL Hgb 14.6 (14.0-18.0) g/dl Hct 44.0 (42.0-52.0) % MCV 89.6 (80.0-98.0) fL MCH 29.7 (27.0-33.0) pg MCHC 33.2 (31.0-36.0) g/dl RDW 13.1 (11.0-16.0) % Plt Count 278 (160-400) X10*3/uL MPV 10.1 (9.4-12.4) fL Immature Gran % (Auto) 0.4 (0.0-0.4) % Neut % (Auto) 55.5 (45-73) % Lymph % (Auto) 35.6 (20-40) % [place] % (Auto) 6.9 (2-11) % Eos % (Auto) 1.1 (0-4) % Baso % (Auto) 0.5 (0-2) % Lymph # (Auto) 2.7 (1.2-4.9) X10*3/uL [place] # (Auto) 0.5 (0.1-1.2) X10*3/uL Eos # (Auto) 0.1 (0.0-0.4) X10*3/uL Baso # (Auto) 0.0 (0.0-0.2) X10*3/uL Abs Immat Gran (auto) 0.03 (0.00-0.03) X10*3/uL Absolute Neuts (auto) 4.2 (2.0-8.3) x10*3/uL Absolute Nucleated RBC 0.000 (0.0-0.012) X10*3/uL Nucleated RBC % (auto) 0.0 (0.0-0.2) /100WBC Sodium 142 (135-145) mmol/L Potassium 3.7 (3.3-5.1) mmol/L Chloride 110 H (96-108) mmol/L Carbon Dioxide 25 (22-29) mmol/L Anion Gap 11 L (12-20) BUN 10 (9-16) mg/dL Creatinine 1.03 (0.5-1.4) mg/dL Estim Creat Clear Calc 129.1 Estimated GFR > 60 Random Glucose 113 (60-115) mg/dL Calcium 9.7 D (8.4-10.2) mg/dL Magnesium 2.0 (1.6-2.6) mg/dL Total Bilirubin 1.3 H (0.0-1.0) mg/dL AST 21 (5-37) U/L ALT 21 (0-40) U/L Alkaline Phosphatase 58 (39-117) U/L Troponin I High Sens < 2.7 (<3.5-35.0) ng/L Total Protein 6.9 (6.5-8.0) g/dL Albumin 3.9 (3.5-5.0) g/dL Influenza Type A (PCR) NEGATIVE (Negative) Influenza Type B (PCR) NEGATIVE (Negative) RSV RNA Qual (PCR) NEGATIVE (Negative) SARS-CoV-2 RNA (RT-PCR) NEGATIVE (Negative) Independent Interpretation I performed an independent interpretation of an: EKG and Plain X-Ray Interpretation: My independent interpretation patient's 12 EKG is as follows: Normal sinus rhythm with a rate of 79, normal MI interval, prolonged QRS duration of 110 milliseconds, normal QTC interval of 456 milliseconds, no ST segment elevation, no ST segment depression, no significant T-wave abnormalities, no PACs, no PVCs- this is a normal EKG. My independent interpretation of the patient's two view chest x-ray is as follows: No acute disease Radiology Impression Discussion of test interpretation with radiology: I have reviewed the radiologist's reading. Radiologist Impression: XR chest 2V IMPRESSION: No acute cardiopulmonary disease. Electronically signed by: Brian Dempsey MD 01/24/2024 04:38 PM EDT RP Dictated By: Brian Dempsey MD Prescription Management I considered prescription management with: Pain Medication Chronic Conditions Patient?s care impacted by: Hypertension Discharge Plan Discharge Clinical Impression: Acute chest wall pain Patient Disposition: Home, Self-Care Instructions: Chest Wall Pain (ED) Additional Instructions: You had a complete blood count (CBC), comprehensive metabolic panel (CMP), troponin (marker heart damage), COVID-19, influenza, RSV tests, chest x-ray and EKG done today. All of these tests were normal which is very reassuring. On your examination you have a localized area of tenderness on your left chest wall underneath your breast and this is consistent with a musculoskeletal/joint injury. Take ibuprofen 200 mg pills, 2 pills every 6 hours as needed for pain. Take Tylenol (acetaminophen) 2 pills every 6 hours as needed for pain. For pain not relieved by ibuprofen or Tylenol take morphine 15 mg pills, 1 pill every 6 hours as needed for pain. This medication will make you sleepy, do not drive or work while taking this medication. Morphine is a narcotic medication and can be addicting. If you are concerned about addiction you can ask the pharmacist for less pills or do not get this prescription filled. Follow-up with your doctor in 2 days. Please return to the emergency department if your symptoms get worse or if you develop any symptoms that are concerning to you. Prescriptions: New morphine 15 mg tablet 15 mg PO Q8H PRN (Reason: pain) Qty: 10 0RF Rx Instructions: Partial Fill upon patient request. No Action benzonatate [Tessalon Perles] 100 mg capsule 100 mg PO TID Qty: 15 0RF doxycycline hyclate 100 mg capsule 100 mg PO BID 10 Days Qty: 20 0RF ketorolac 10 mg tablet 10 mg PO TID PRN (Reason: pain) 5 Days Qty: 15 0RF cyclobenzaprine 10 mg tablet 10 mg PO BEDTIME PRN (Reason: muscle spasm) 7 Days Qty: 20 0RF meloxicam 15 mg tablet 15 mg PO DAILY 30 Days Qty: 30 2RF losartan 50 mg tablet 50 mg PO DAILY 30 Days Qty: 30 1RF Interventions: ED Discharge Assessment Last Done: 01/24/24 20:29 Discharge Date/Time: 01/24/24 20:32 Print Language: Honduran
[2024-01-24 15:17] LABS: MANUAL DIFF FLAG NO
[2024-01-24 15:18] LABS: Basophils Percent Auto 0.5 % (0-2); Eosinophils Absolute Auto 0.1 X10*3/uL (0.0-0.4); Eosinophils Percent Auto 1.1 % (0-4); Hemoglobin 14.6 g/dl (14.0-18.0); Imm Gran Abs Auto 0.03 X10*3/uL (0.00-0.03); Imm Gran Pct Auto 0.4 % (0.0-0.4); Lymphocytes Absolute Auto 2.7 X10*3/uL (1.2-4.9); Lymphocytes Percent Auto 35.6 % (20-40); Mean Corpuscular HGB Conc 33.2 g/dl (31.0-36.0); Mean Corpuscular Hemoglobin 29.7 pg (27.0-33.0); Mean Corpuscular Volume 89.6 fL (80.0-98.0); Mean Platelet Volume 10.1 fL (9.4-12.4); Monocytes Absolute Auto 0.5 X10*3/uL (0.1-1.2); Monocytes Percent Auto 6.9 % (2-11); Neutrophils Absolute Auto 4.2 x10*3/uL (2.0-8.3); Neutrophils Percent Auto 55.5 % (45-73); Platelet Count 278 X10*3/uL (160-400); Red Blood Count 4.91 X10*6/uL (4.60-5.80); Red Cell Distribution Width 13.1 % (11.0-16.0); White Blood Count 7.6 X10*3/uL (4.8-10.8)
[2024-01-24 15:52] LABS: Alanine Aminotransferase 21 U/L (0-40); Albumin Level 3.9 g/dL (3.5-5.0); Alkaline Phosphatase 58 U/L (39-117); Anion Gap 11 (12-20); Aspartate Amino Transferase 21 U/L (5-37); Bilirubin Total 1.3 mg/dL (0.0-1.0); Blood Urea Nitrogen 10 mg/dL (9-16); Calcium 9.7 mg/dL (8.4-10.2); Carbon Dioxide 25 mmol/L (22-29); Chloride 110 mmol/L (96-108); Creatinine Clr Calc Pharmacy 129.1; Estimated Glomerular Filt Rate > 60; Glucose Random 113 mg/dL (60-115); Potassium 3.7 mmol/L (3.3-5.1); Sodium 142 mmol/L (135-145); Total Protein 6.9 g/dL (6.5-8.0); Troponin-I High Sensitivity < 2.7 ng/L (<3.5-35.0)
[2024-01-24 16:04] LABS: Influenza A PCR NEGATIVE (Negative); Influenza B PCR NEGATIVE (Negative); Resp Syncy Virus RNA Qual PCR NEGATIVE (Negative); SARS COV2 PCR INHOUSE NEGATIVE (Negative)
[2024-01-24 20:24] VITALS: BP 145/77; PULSE 59; RESP 16; TEMP 36.8; O2SAT 99
[2024-01-24 20:29] VITALS: BP 145/77; PULSE 59; RESP 16; TEMP 36.8; O2SAT 99
== END 2024-01-24 20:32 | disposition home or self-care (01) ==
PROVIDERS: Physician Assistant Medical; Emergency Provider Emergency Medicine Emergency Medical Services
DX: R07.9 Chest pain, unspecified (principal); R05.9 Cough, unspecified; I10 Essential (primary) hypertension
CPT/HCPCS: 0241U; 71046; 80053; 83735; 84484; 85025; 93005; 99283; 99284

== ENCOUNTER → 2024-01-24 14:34 | Outpatient (BNV) | payer OTHER, SELFPAY | PROVIDERS: Emergency Provider Emergency Medicine Emergency Medical Services; Visit Provider Internal Medicine Cardiovascular Disease | DX: R07.9 Chest pain, unspecified (principal) | CPT/HCPCS: 93010 ==

== ENCOUNTER 2024-02-08 10:59 | Emergency (ER) | payer OTHER, SELFPAY ==
--- NOTE | ~2024-02-08 | XR_ITS ---
EXAMINATION: XR CHEST CLINICAL INFORMATION: Cough for greater than one month COMPARISON: Prior chest radiograph 01/24/2024 TECHNIQUE: 2 views of the chest were obtained. FINDINGS: Lungs clear. No pleural effusions. Heart and pulmonary vessels normal. XR/XR chest 2V IMPRESSION: No active disease. Electronically signed by: Juan Antonio Person MD 02/08/2024 02:12 PM [facility]
[2024-02-08 11:49] VITALS: BP 162/86; PULSE 83; RESP 18; TEMP 36.9; O2SAT 97; BMI 37.4
--- NOTE | 2024-02-08 11:49 | ED.GENADULT ---
HPI - General Adult General Chief complaint: Upper Respiratory Symptoms Stated complaint: Cough 2 weeks Time Seen by Provider: 02/08/24 14:40 Source: patient and safekeeping clerk (monegasque) Mode of arrival: ambulatory Limitations: language barrier (monegasque speaking) History of Present Illness ED Provider: ASYA BRENNER PA-C HPI narrative: 38 year old male with pmhx significant for HTN and morbid obesity presents to the ED today for evaluation of cough productive of sputum and sore throat x14 days. Reports his cough keeps him up at night, making it difficult for him to sleep. Endorses associated subjective fevers and rib pain secondary to coughing fits. He has not trial any OTC medication for symptoms at home. Admits his two sons at home recently tested positive for RSV. Denies recent travel or long car rides. Denies headache, dizziness, odynophagia, hemoptysis, abd pain, N/V, constipation, diarrhea. Vaccinations up-to-date. camera repairman utilized throughout visit to communicate with patient. Related Data Previous Rx's ?Medication ?Instructions ?Recorded benzonatate 100 mg capsule 100 mg PO TID cough #15 caps 01/21/20 (Kodi Irvin) cyclobenzaprine 10 mg tablet 10 mg PO BEDTIME PRN muscle spasm 06/02/21 7 days #20 tabs losartan 50 mg tablet 50 mg PO DAILY 30 days #30 tabs 06/02/21 meloxicam 15 mg tablet 15 mg PO DAILY 30 days #30 tabs 06/02/21 doxycycline hyclate 100 mg capsule 100 mg PO BID 10 days #20 caps 10/26/22 ketorolac 10 mg tablet 10 mg PO TID PRN pain 5 days #15 10/26/22 tabs morphine 15 mg immediate release 15 mg PO Q8H PRN pain #10 tabs 01/24/24 tablet azithromycin 250 mg tablet See Rx Instructions PO .COMPLEX #6 02/08/24 tabs benzonatate 100 mg capsule 100 mg PO BID PRN cough #20 caps 02/08/24 prednisone 20 mg tablet 40 mg (2 x 20 mg) PO DAILY 4 days 02/08/24 #8 tabs Allergies Allergy/AdvReac Type Severity Reaction Status Date / Time No Known Allergies Allergy Verified 02/08/24 11:51 [No Known Allergies*] Review of Systems Review of Systems: Constitutional: No fever, chills, fatigue, night sweats, weight changes ENT/Mouth: No ear pain, hearing loss, nasal congestion, sinus pain, rhinorrhea, +sore throat Eyes: No eye pain, swelling, redness, vision changes, discharge Cardio: No chest pain, palpitations, CALDERA, orthopnea, peripheral edema Pulm: No SOB, cough, sputum, wheezing, dyspnea, hemoptysis, +productive cough GI: No nausea, vomiting, hematemesis, abdominal pain, diarrhea, constipation, hematochezia, melena : No irregular bleeding, dysuria, frequency, urgency, hesitancy, hematuria, flank pain, urinary flow changes, urinary incontinence or retention MSK: No back pain, neck pain, joint pain, myalgias Skin: No lesions, rashes Neuro: No weakness, numbness, paresthesias, LOC, dizziness, headache Psych: No anxiety/panic, depression, SI/HI, AH/VH All other systems reviewed and are negative. [facility] Past Medical History Attestation statement: The following information was validated with the patient. Source: old records reviewed and nursing notes reviewed Medical History Recurrent umbilical hernia Morbid obesity with body mass index (BMI) of 40.0 or higher Hypertension Hernia Surgical History History of hernia surgery Social History Social History Housing: Apartment Alcohol intake: never Patient Tobacco Use Status: Never used Tobacco e-Cigarette/Vaping Use: Never Used Second Hand Smoke Exposure: No Advance Directives: No service: No Current occupational status: employed Current occupational exposures/hazards: No Cognitive needs: No Hearing needs: No Vision needs: No Physical Exam ED Vital Signs: Vital Signs - 24 hr 02/08/24 11:49 02/08/24 15:21 02/08/24 16:17 Temperature 98.5 F 98.1 F Pulse Rate 83 74 89 Respiratory Rate 18 18 22 H Blood Pressure 162/86 H 152/81 H Pulse Oximetry 97 Oxygen Delivery Method Room Air BMI result Body Mass Index 37.4 hypertensive, vitals otherwise wnl General: Well appearing, in no acute distress. Skin: Warm, dry, intact. No rashes or lesions. Head: Normocephalic, atraumatic. EENT: Hearing is intact b/l. Conjunctiva clear. PERRLA. Moist mucous membranes.?Posterior oropharynx slightly erythematous without edema. No peritonsillar masses. No tonsillar exudates. Uvula midline. Controlling secretions and speaking complete sentences. Neck: Supple without LAD Cardiac: Chest wall symmetric. RRR. No TTP over anterior/ lateral/ posterior chest wall. no palpable deformity or crepitus. Lungs: No increased effort of breathing. No tripoding. Congested cough. There are scattered expiratory wheezes and rhonchi throughout. Back: No midline spinous or paraspinal tenderness. No step off deformity. Ext: Upper and lower extremities atraumatic, without tenderness, deformity, swelling or erythema. Full ROM throughout. no calf tenderness bilaterally. Neuro: AOx3. Normal speech. Ambulating with steady gait. Psych: Appropriate mood and affect. Responds appropriately to questions. Course Course Course Narrative: This is a rapid medical exam performed by Austin Barnhart NP: Additional HPI, ROS, PE not included below will be deferred to primary provider. Patient is a 38-year-old male presenting with complaint of sore throat, cough for over 1 months, kids tested positive for RSV. Has had fevers but none today. Plan: viral and strep swabs, cxr Reevaluation(s) Reevaluation #1: 3118 -- patient tested negative for covid/ flu/ rsv and strep throat. chest xray does not demonstrate pneumonia. He received updraft and Solu-Medrol in the ED today. lungs are now CTA b/l. Likely upper respiratory infection. Respiratory panel sent to lab to evaluate for other respiratory infections. Given length of symptoms, will treat with prednisone, azithromycin, and Tessalon Perles. Patient has remained stable throughout ED visit today. Discussed worrisome signs and symptoms and when to return to the ED. All questions answered at this time. Patient is agreeable with disposition and stable for discharge. Medications Administered Discontinued Medications Generic Name Dose Route Start Last Admin Trade Name Freq PRN Reason Stop Dose Admin Albuterol Sulfate 2.5 mg/ 0 mg 02/08/24 15:17 02/08/24 15:21 Albuterol/Ipratropium 3 ml INHALE 02/08/24 15:18 1 dose ONCE ONE Administration Guaifenesin/Dextromethorphan 10 ml 02/08/24 15:08 02/08/24 16:18 Guaifenesin Dm 200/20/10 Ml 10 Ml Syrup PO 02/08/24 15:09 10 ml ONCE ONE Administration Methylprednisolone Sodium Succinate 60 mg 02/08/24 15:01 02/08/24 15:13 Methylprednisolone Sod Succ 125 Mg/2 Ml Vial IM 02/08/24 15:02 60 mg ONCE ONE Administration Medical Decision Making Medical Decision Making [facility] Narrative: 38 year old male with pmhx significant for HTN and morbid obesity presents to the ED today for evaluation of cough productive of sputum and sore throat x14 days. Patient hypertensive, vitals otherwise WNL. He is not hypoxic or febrile. After breathing treatment, slightly tachypneic to 22. No increased effort of breathing. No tripoding. No accessory muscle use. On auscultation there are scattered expiratory wheezes and rhonchi. Posterior oropharynx slightly erythematous without noted edema. no tonsillar exudates. No peritonsillar masses. Uvula midline. Controlling secretions and speaking in complete sentences. Differential diagnosis includes viral syndrome, strep throat, bronchitis, pneumonia. Unlikely PE, ACS, arrhythmia, mono, TECHNICAL INSPECTOR, retropharyngeal abscess, epiglottitis. Plan for viral serology, CXR, ED bronch protocol, solumedrol, and re-evaluation. Differential Diagnosis Differential Diagnoses: The differential diagnosis associated with the presentation includes as above. Admission/Observation not indicated. Lab Data [facility] Lab Attestation statement: I reviewed the patient's lab results. as above. Labs: Lab Results 02/08/24 02/08/24 Range/Units 12:33 12:34 Influenza Type A (PCR) NEGATIVE (Negative) Influenza Type B (PCR) NEGATIVE (Negative) RSV RNA Qual (PCR) NEGATIVE (Negative) SARS-CoV-2 RNA (RT-PCR) NEGATIVE (Negative) S. pyogenes GrpA PACHECO Negative (Negative) Independent Interpretation I performed an independent interpretation of an: Plain X-Ray Interpretation: cxr without infiltrate or consolidation Radiology Impression Discussion of test interpretation with radiology: I have reviewed the radiologist's reading. Radiologist Impression: EXAMINATION: XR CHEST CLINICAL INFORMATION: Cough for greater than one month COMPARISON: Prior chest radiograph 01/24/2024 TECHNIQUE: 2 views of the chest were obtained. FINDINGS: Lungs clear. No pleural effusions. Heart and pulmonary vessels normal. XR/XR chest 2V IMPRESSION: No active disease. Electronically signed by: Juan Antonio Person MD 02/08/2024 02:12 PM [facility] External Record Review External record reviewed: Inpatient record Prescription Management I considered prescription management with: Other (prednisone) Chronic Conditions Patient?s care impacted by: Hypertension Social Determinants Patient?s care significantly limited by Social Determinants of Health including: Other Social Determinant of Health Critical Care Time Critical Care Time Critical Care Time: No Discharge Plan Discharge Clinical Impression: Bronchitis Patient Disposition: Home, Self-Care Instructions: Acute Bronchitis (ED) Additional Instructions: You tested negative for COVID, flu, RSV, strep throat. Your chest xray does not demonstrate pneumonia. Prednisone as a steroid that has been sent to your pharmacy to help with your breathing. Take this over the next 4 days, starting tomorrow as you already received a dose in the ED today. Azithromycin is an antibiotic that has been sent to your pharmacy. Take this over the next 5 days as directed. Tessalon Perles have been sent to your pharmacy for you to take as needed for cough. Swabs have been sent to the lab to evaluate for other respiratory viral infections. You will be contacted in 1-3 days if any results return positive. Follow up with your primary care provider this week. Return with new or worsening symptoms. In the case of an emergency call 911. Prescriptions: New prednisone 20 mg tablet 40 mg PO DAILY 4 Days Qty: 8 0RF azithromycin 250 mg tablet See Rx Instructions .ROUTE .COMPLEX Qty: 6 0RF Rx Instructions: For 250 mg dose pack: take 500 mg today (day 1), then 250 mg for 4 days (days 2-5) benzonatate 100 mg capsule 100 mg PO BID PRN (Reason: cough) Qty: 20 0RF No Action benzonatate [Tessalon Perles] 100 mg capsule 100 mg PO TID Qty: 15 0RF doxycycline hyclate 100 mg capsule 100 mg PO BID 10 Days Qty: 20 0RF ketorolac 10 mg tablet 10 mg PO TID PRN (Reason: pain) 5 Days Qty: 15 0RF morphine 15 mg tablet 15 mg PO Q8H PRN (Reason: pain) Qty: 10 0RF Rx Instructions: Partial Fill upon patient request. cyclobenzaprine 10 mg tablet 10 mg PO BEDTIME PRN (Reason: muscle spasm) 7 Days Qty: 20 0RF meloxicam 15 mg tablet 15 mg PO DAILY 30 Days Qty: 30 2RF losartan 50 mg tablet 50 mg PO DAILY 30 Days Qty: 30 1RF Referrals: Scarlet Farias MD [Primary Care Provider] - Stand Alone Forms: Work/School Release Print Language: Citizen Of [place]
[2024-02-08 12:54] LABS: IDNOW Serial# 08D9AD1C; Strep A Nucleic Acid Negative (Negative)
[2024-02-08 13:28] LABS: Influenza A PCR NEGATIVE (Negative); Influenza B PCR NEGATIVE (Negative); Resp Syncy Virus RNA Qual PCR NEGATIVE (Negative); SARS COV2 PCR INHOUSE NEGATIVE (Negative)
[2024-02-08] MEDS: methylPREDNISolone Sod Succ 125 MG/2 ML VIAL 60 MG IM (15:13)
[2024-02-08 15:21] VITALS: PULSE 74; RESP 18; O2SAT 98
[2024-02-08] MEDS: Albuterol Sulfate 2.5 MG, Albuterol/Iprat 2.5/0.5MG 3 ML 3 ML INHALE (15:21)
[2024-02-08 16:17] VITALS: BP 152/81; PULSE 89; RESP 22; TEMP 36.7
[2024-02-08] MEDS: guaiFENesin DM 200/20/10 ML 10 ML SYRUP PO (16:18)
[2024-02-08 16:38] VITALS: BP 152/81; PULSE 89; RESP 22; TEMP 36.7
[2024-02-09 10:59] LABS: Adenovirus PCR Not Detected (Not Detect.); Bordetella parapertussis PCR Not Detected (Not Detect.); Bordetella pertussis PCR Not Detected (Not Detect.); Chlamydia pneumoniae PCR Not Detected (Not Detect.); Coronavirus 229E PCR Not Detected (Not Detect.); Coronavirus HKU1 PCR Not Detected (Not Detect.); Coronavirus NL63 PCR Not Detected (Not Detect.); Coronavirus OC43 PCR Not Detected (Not Detect.); Human metapneumovirus PCR Not Detected (Not Detect.); Influenza A PCR Not Detected (Not Detect.); Influenza B PCR Not Detected (Not Detect.); Mycoplasma pneumoniae PCR Not Detected (Not Detect.); Parainfluenza 1 PCR Not Detected (Not Detect.); Parainfluenza 2 PCR Not Detected (Not Detect.); Parainfluenza 3 PCR Not Detected (Not Detect.); Parainfluenza 4 PCR Not Detected (Not Detect.); RSV PCR Detected (Not Detect.); Rhino/Enterovirus PCR Not Detected (Not Detect.)
[2024-02-09 11:39] LABS: SARS-CoV-2 PCR Not Detected (Not Detect.)
== END 2024-02-08 16:39 | disposition home or self-care (01) ==
PROVIDERS: Physician Assistant Medical; Registered Nurse Emergency; Emergency Provider Emergency Medicine; PCP Internal Medicine
DX: J40 Bronchitis, not specified as acute or chronic (principal); R05.9 Cough, unspecified; J02.9 Acute pharyngitis, unspecified; I10 Essential (primary) hypertension; Z03.818 Encounter for observation for suspected exposure to other biological agents ruled out; Z79.899 Other long term (current) drug therapy
CPT/HCPCS: 0241U; 71046; 87633; 87651; 94640; 96372; 99284; J2919

== ENCOUNTER 2025-01-26 08:49 | Emergency (ER) | payer MEDICAID, SELFPAY ==
[2025-01-26 09:01] VITALS: BP 141/71; PULSE 95; RESP 18; TEMP 37; O2SAT 97; BMI 38.2
[2025-01-26 09:22] LABS: IDNOW Serial# 55D5AD1C; Strep A Nucleic Acid Positive (Negative)
--- NOTE | 2025-01-26 10:01 | ED_ITS ---
HPI - General Adult General Chief complaint: Upper Respiratory Symptoms Stated complaint: fever, throat pain Time Seen by Provider: 01/26/25 09:21 Source: patient, RN notes reviewed and old records reviewed Mode of arrival: ambulatory History of Present Illness ED Provider: Sandy Garg PA-C HPI narrative: 39-year-old male with a past medical history HTN, obesity, hernia, presenting to the ED complaining of sore throat, subjective fever, dry cough x last night. Daughter in ED with similar symptoms. Denies ear pain, difficulty swallowing, CP/SOB, ear pain, travel Related Data Previous Rx's ?Medication ?Instructions ?Recorded benzonatate 100 mg capsule 100 mg PO TID cough #15 cap s 01/21/20 (Kodi Irvin) cyclobenzaprine 10 mg tablet 10 mg PO BEDTIME PRN musc le spasm 06/02/21 7 days #20 tabs losartan 50 mg tablet 50 mg PO DAILY 30 days #30 t abs 06/02/21 meloxicam 15 mg tablet 15 mg PO DAILY 30 days #30 t abs 06/02/21 doxycycline hyclate 100 mg capsule 100 mg PO BID 10 da ys #20 caps 10/26/22 ketorolac 10 mg tablet 10 mg PO TID PRN pain 5 days #15 10/26/22 tabs morphine 15 mg immediate release 15 mg PO Q8H PRN pain #10 tabs 01/24/24 tablet azithromycin 250 mg tablet See Rx Instructions PO .COM PLEX #6 02/08/24 tabs benzonatate 100 mg capsule 100 mg PO BID PRN cough #20 caps 02/08/24 prednisone 20 mg tablet 40 mg (2 x 20 mg) PO DAILY 4 days 02/08/24 #8 tabs penicillin V potassium 500 mg 500 mg PO BID 10 days #2 0 tabs 01/26/25 tablet Allergies Allergy/AdvReac Type Severity Reaction Status Date / Time No Known Allergies (No Known Allergy Verified 01/26/25 09:05 Allergies*) Review of Systems Review of Systems: Yes all other systems are reviewed and are negative Constitutional: Constitutional: Reports as per HPI [facility] Past Medical History Attestation statement: The following information was validated with the patient. Source: old records reviewed Medical History Recurrent umbilical hernia Morbid obesity with body mass index (BMI) of 40.0 or higher Hypertension Hernia Surgical History History of hernia surgery Social History Social History Housing: Apartment Alcohol intake: never Patient Tobacco Use Status: Never used Tobacco e-Cigarette/Vaping Use: Never Used Second Hand Smoke Exposure: No Advance Directives: No Advance Directives Information Provided: Yes service: No Current occupational status: employed Current occupational exposures/hazards: No Cognitive needs: No Hearing needs: No Vision needs: No Physical Exam ED Vital Signs: Vital Signs - 24 hr 01/26/25 09:01 01/26/25 10:49 Temperature 98.6 F 98.6 F Pulse Rate 95 95 Respiratory Rate 18 18 Blood Pressure 141/71 H 141/71 H Pulse Oximetry 97 97 Oxygen Delivery Method Room Air Room Air BMI result Body Mass Index 38.2 Const General: cooperative, healthy appearing and no acute distress Orientation/consciousness: patient oriented x3 Limitations: no limitations HENMT Head: Yes normal to inspection and Yes atraumatic Ears: hearing grossly normal bilaterally, external ears normal, TM's normal bilaterally and mastoids normal General nose exam: Normal external nose present Face and sinus: Yes normal facial exam Mouth: no audible dysphonia, no drooling and no muffled voice Throat: Yes uvula midline, Yes abnormal tonsil (+ bilateral tonsillar swelling/erythema and exudates), No peritonsillar mass, No uvula laterally displaced and No uvular edema Eyes General: appearance normal, both eyes and all related structures EOM: EOMs intact bilaterally Neck Other: + submandibular lymphadenopathy Neck: Yes normal visual inspection, Yes no meningeal signs and No anterior neck swelling Resp Effort & Inspection: normal respiratory effort, no respiratory distress and no stridor Auscultation: clear to auscultation bilaterally and no wheezes Cardio Rate: regular rate Heart sounds: S1 normal heart sound present and S2 normal heart sound present GI Inspection: Yes normal to inspection Palpation (GI): Soft to palpation, nontender, no guarding and not rigid Skin Rashes: no rashes Wounds: no wounds Neuro General: patient oriented x3, tone normal and no meningeal signs Cranial nerves: Yes CN's II-XII intact bilaterally Gait exam (Neuro): Normal gait present Extrem General: Yes normal to inspection Course Course Course Narrative: -rapid strep positive -COVID and flu negative Results discussed with patient including worrisome signs and symptoms and strict return precautions, and when to return to the emergency department. They verbalized understanding and feel safe for discharge at this time. Medical Decision Making Medical Decision Making MDM Narrative: 39-year-old male with a past medical history HTN, obesity, hernia, presenting to the ED complaining of sore throat, subjective fever, dry cough x last night. On exam vital signs stable, NAD, nontoxic appearing, bilateral tonsillar swelling/erythema with exudates noted. Uvula midline. Talking in complete sentences. No respiratory distress. Concern for strep pharyngitis vs viral illness. No evidence of [employer]/retropharyngeal abscess at this time Plan: Rapid strep, COVID/flu testing Please refer to course for remaining clinical decision making, interpretation of labs/imaging results, and discussions with consultants and/or family members. Differential Diagnosis Differential Diagnoses: The differential diagnosis associated with the presentation includes As above Lab Data [facility] Lab Attestation statement: I reviewed the patient's lab results. Labs: Lab Results 01/26/25 01/26/25 Range/Units 09:08 09:36 COVID-19 ([facility]) Negative (Negative) COVID-19 Clin Com See Note Influenza Type A ([facility]) Negative (Negative) Influenza Type B ([facility]) Negative (Negative) Influenza A & B Note See Note S. pyogenes GrpA [facility] Positive A (Negative) Radiology Impression Discussion of test interpretation with radiology: I have reviewed the radiologist's reading. Independent Historian Clinical information obtained from an independent historian. History obtained from or confirmed by: Spouse External Record Review External record reviewed: Inpatient record, Office record, Outpatient record, Prior outpatient labs, Prior outpatient radiology, Primary care record and Outs kirt ED record Tests considered The following testing was considered but not selected: As above Prescription Management I considered prescription management with: Pain Medication and Antibiotic Chronic Conditions Patient?s care impacted by: Other Social Determinants Patient?s care significantly limited by Social Determinants of Health including: Other Social Determinant of Health Discharge Plan Discharge Clinical Impression: Acute streptococcal pharyngitis Patient Disposition: Home, Self-Care Instructions: Strep Throat (DC) Additional Instructions: You have strep throat Penicillin V as an antibiotic please take as prescribed until completion Please take Tylenol and ibuprofen at home as needed for swelling/pain control Gargle with warm saltwater If you have difficulty or inability to swallow, fever unresolved with medications, persistent or worsening symptoms return to the emergency department Follow up with your primary care doctor Prescriptions: New penicillin V potassium 500 mg tablet 500 mg PO BID 10 Days Qty: 20 0RF No Action benzonatate [Tessalon Perles] 100 mg capsule 100 mg PO TID Qty: 15 0RF doxycycline hyclate 100 mg capsule 100 mg PO BID 10 Days Qty: 20 0RF ketorolac 10 mg tablet 10 mg PO TID PRN (Reason: pain) 5 Days Qty: 15 0RF morphine 15 mg tablet 15 mg PO Q8H PRN (Reason: pain) Qty: 10 0RF Rx Instructions: Partial Fill upon patient request. prednisone 20 mg tablet 40 mg PO DAILY 4 Days Qty: 8 0RF azithromycin 250 mg tablet See Rx Instructions .ROUTE .COMPLEX Qty: 6 0RF Rx Instructions: For 250 mg dose pack: take 500 mg today (day 1), then 250 mg for 4 days (days 2-5) benzonatate 100 mg capsule 100 mg PO BID PRN (Reason: cough) Qty: 20 0RF cyclobenzaprine 10 mg tablet 10 mg PO BEDTIME PRN (Reason: muscle spasm) 7 Days Qty: 20 0RF meloxicam 15 mg tablet 15 mg PO DAILY 30 Days Qty: 30 2RF losartan 50 mg tablet 50 mg PO DAILY 30 Days Qty: 30 1RF Referrals: Scarlet Farias MD [Primary Care Provider, Internal Medicine] - 5 days Interventions: ED Discharge Assessment Last Done: 01/26/25 10:49 Print Language: Setswana
[2025-01-26 10:11] LABS: IDNOW Serial# 55D5AD1C; Influenza B2 Negative (Negative)
[2025-01-26 10:12] LABS: COVID-19 Test Negative (Negative); IDNOW Serial# 08D9AD1C
[2025-01-26 10:49] VITALS: BP 141/71; PULSE 95; RESP 18; TEMP 37; O2SAT 97
--- OUTSIDE RECORDS SUMMARY | 2025-01-26 10:49 | XMS_ITS | Clinical Summary ---
Author Organization [facility] it Address [id number] [place] [id number] Care Team Providers Care Lecturer Of Portuguese Name Role Phone Hema Ochoa MD Primary Care Provider [phone] Surgical History Surgery Date Site/Laterality Comments WISDOM TOOTH EXTRACTION PROCEDURE: HISTORICAL WISDOM TEETH EXTRACTION Medical History Medical History Date Comments Patient denies medical problems DX:Patient denies medical problems Rectus diastasis 10/07/2018 DX:Rectus diast asis Family History Medical History Relation Name Comments No Known Problems Brother No Known Problems Father No Known Problems Maternal Grandfather No Known Problems Maternal Grandmother Hypertension Mother No Known Problems Paternal Grandfather No Known Problems Paternal Grandmother No Known Problems Sister 1 No Known Problems Sister 2 Relation Name Status Comments Brother Alive Father Alive Maternal Grandfather Alive Maternal Grandmother Alive Mother Alive Paternal Grandfather Paternal Grandmother Sister 1 Alive Sister 2 Alive Social History Tobacco Use Types Packs/Day Years Used Date Smoking Tobacco: Never Smokeless Tobacco: Never Alcohol Use Standard Drinks/Week Comments No 0 (1 standard drink = 0.6 oz pur e alcohol) Sex and Gender Information Value Date Recorded Sex Assigned at Not on file Legal Sex Male 3:38 PM EST Gender Identity Not on file Sexual Orientation Not on file Obstetrics History Plan of Treatment Health Maintenance Due Date Last Done Comments DTaP,Tdap,and Td Vaccines (1 - Tdap) 2004 Hepatitis B Vaccines (1 of 3 - 19+ 3-dose series) 2004 HPV Vaccines (1 - 3-dose SCD M series) 2012 Cholesterol Screening (Lipid Panel) 05/04/2023 HIV Screening 05/04/2023 Hepatitis C Screening 05/04/2023 Social Influencers of Health Screening 05/04/2023 Depression Screening 04/05/2024 COVID-19 Vaccine ( - 2023-2 5 season) 2024 Influenza Vaccine (#1) 2024 RSV Immunization Adult Patie nts (1 - 1-dose 75+ series) 2060 HIB Vaccines Aged Out No longer eligi ble based on patient's age to complete this topic Hepatitis A Vaccines Aged Out No long er eligible based on patient's age to complete this topic IPV Vaccines Aged Out No longer eligi ble based on patient's age to complete this topic MMR Vaccines Aged Out No longer eligi ble based on patient's age to complete this topic Meningococcal ACWY Vaccine Aged Out N o longer eligible based on patient's age to complete this topic Meningococcal B Vaccine Aged Out No l onger eligible based on patient's age to complete this topic Pneumococcal Vaccine: Pediat rics (0 to 5 Years) and At-Risk Patients (6 to 49 Years) Aged Out No longer eligible b ased on patient's age to complete this topic RSV Immunization Patients Un cheryl 20 months Aged Out No longer eligible b ased on patient's age to complete this topic Varicella Vaccines Aged Out No longer eligible based on patient's age to complete this topic Care Teams Lecturer Of Portuguese Relationship Specialty Start Date End Date Hema Ochoa MD [address] [id number] PCP - General Emergency Medicine 11/16/18
[2025-01-26 11:01] VITALS: BP 141/71; PULSE 95; RESP 18; TEMP 37; O2SAT 97
== END 2025-01-26 11:01 | disposition home or self-care (01) ==
PROVIDERS: Physician Assistant; Emergency Provider Emergency Medicine; PCP Internal Medicine
DX: J02.0 Streptococcal pharyngitis (principal); R50.9 Fever, unspecified; Z03.818 Encounter for observation for suspected exposure to other biological agents ruled out; I10 Essential (primary) hypertension
CPT/HCPCS: 87502; 87635; 87651; 99282; 99283

== ENCOUNTER 2025-02-27 11:26 | Outpatient (AMB) | payer OTHER, SELFPAY ==
[2025-02-27 11:28] VITALS: BP 148/90; PULSE 89; RESP 18; TEMP 36.8; O2SAT 97; BMI 38.2
--- NOTE | 2025-02-27 11:28 | MHC.PC.OV ---
Vital Signs 02/27/25 11:28 Height 5 ft 11 in Weight 274 lb 4 oz BMI 38.2 BP 148/90 H Blood Pressure Location Lt brachial Position Sitting Respiration 18 Pulse 89 Pulse Source Monitor Temp 98.3 F Temp Source Oral Pulse Oximetry (%) 97 Oxygen Delivery Method Room Air Intake Visit Reasons: ASSESSMENT EXPERT/ Establish Care Intake Note: establish care Physician/Ophthalmologist Required: No Physician/Ophthalmologist Name: Doctor speaks sao tomean Accompanied by: Spouse Allergies No Known Allergies (No Known Allergies*) Allergy (Verified 02/27/25 11:32) Medication List - Last Reconciled 02/27/25 by Misael Lyons MD No Known Home Meds Tobacco use date assessed: 02/27/25 Dental Screening Dental Screen Date: 02/27/25 Did you have a dental visit in the last 12 months?: Yes Did you have a dental problem in the last 6 months where you did not have access to dental care?: No Was dental information given to patient?: Patient has dentist HPI HPI Comments History of Present Illness Details History of Present Illness The patient is a 39 year old individual presenting with a general check-up. Follow-up Visit: The patient has not seen a doctor in approximately two years, following a prior surgery. lipoma complains of mass on upper back complains of discomfort from time to time rash complains of rash in between thighs Surgical History: - Unspecified surgery approximately two years ago. Social History: - Substance Use: The patient denies smoking, drinking, and illicit drug use. - Employment: The patient is not currently working. - Family Status: The patient attended the visit with the patient's and daughter. Family History: - The patient denies any family history of cancer. Diagnostic Results: - BMI: 38.2, consistent with Class 2 obesity. Past Medical History - Blindness in one eye - History of lymphoma Health Maintenance - Cancer Screening: The patient is 39 years old and does not require a colonoscopy at this time. - Laboratory Screening: Orders placed for Vitamin D level, hepatitis C, hepatitis B, HIV, and urinalysis. - Weight Management: BMI is 38.2 (Class 2 obesity), which was identified as a health concern to address. [facility] Medical History (Updated 02/27/25 @ 12:47 by Misael Lyons MD) Class 2 obesity Lipoma Sleep apnea Recurrent umbilical hernia Morbid obesity with body mass index (BMI) of 40.0 or higher Hypertension Hernia Surgical History History of hernia surgery Social History (Updated 02/27/25 @ 11:35 by Saul Cowan CMA) Housing: Apartment Alcohol intake: never Patient Tobacco Use Status: Never used Tobacco e-Cigarette/Vaping Use: Never Used Second Hand Smoke Exposure: No service: No Current occupational status: employed Current occupational exposures/hazards: No Cognitive needs: No Hearing needs: No Vision needs: No Questionnaire PHQ-9 Over the last 2 weeks, how often have you been bothered by any of the following problems? 1. Little interest or pleasure in doing things: not at all 2. Feeling down, depressed, or hopeless: not at all 3. Trouble falling or staying asleep, or sleeping too much: not at all 4. Feeling tired or having little energy: several days 5. Poor appetite or overeating: not at all 6. Feeling bad about yourself - or that you are a failure or have let yourself or your family down: not at all 7. Trouble concentrating on things, such as reading the newspaper or watching television: not at all 8. Moving or speaking so slowly that other people could have noticed. Or the opposite - being so fidgety or restless that you have been moving around a lot more than usual: not at all 9. Thoughts that you would be better off or of hurting yourself in some way: not at all Total score: 1 Depression Screening Interpretation: Negative Depression Screening Done: Yes 61691 - PHQ-9 Billing: Yes Source: Developed by Drs. Florentin Regan, Patsy Marquez, Serge Rob and colleagues, with an educational sanjeev from [email or web address]. Thrive Questionnaire Date Thrive assessed: 02/27/25 I am a: Patient What is your living situation today?: I have a steady place to live Within the past 12 months, did the food you bought not last and you didn't have the money to get more?: I choose not to answer this question Within the past 12 months, did you worry whether your food would run out before you got money to buy more?: I choose not to answer this question Do you have trouble paying for medicines?: No Do you have trouble getting transportation to medical appointments?: No Do you have trouble paying your heating and electricity bill?: No Do you have trouble taking care of your child, family member or friend?: No Are you currently unemployed and looking for a job?: No Are you interested in more education?: Yes Please select the resources that you would like help with: None Currently or been in a relationship where the following occur: No concerns reported THRIVE Score: 0 AUDIT C Alcohol Use Questionnaire (AUDIT-C) 1. How often do you have a drink containing alcohol?: Never Total Score: 0 EUGENIO-7 AMB Questionnaire EUGENIO-7 Date EUGENIO - 7 assessed: 02/27/25 Feeling nervous, anxious, or on edge: 0 = Not at all Not being able to stop or control worryin = Not at all Worrying too much about different things: 0 = Not at all Trouble relaxin = Not at all Being so restless that it is hard to sit still: 0 = Not at all Becoming easily annoyed or irritable: 0 = Not at all Feeling afraid as if something awful might happen: 0 = Not at all Total EUGENIO-7 score (0-4 normal; 5-9 mild; 10-14 moderate; 15-21 severe): 0 Source: Developed by Drs. Florentin Regan, Patsy Marquez, Serge Rob and colleagues, with an educational sanjeev from [email or web address]. EUGENIO-7 Assessment Billing EUGENIO-7 Assessment Tool: EUGENIO-7 Assessment 11649 Review of Systems Narrative Review of Systems - Eyes: Reports blindness in one eye. 10-point ROS reviewed and negative except as noted in HPI Physical exam (Primary Care) Tobacco/Smoking Status: Tobacco use Status Tobacco use date assessed 07/08/21 02/27/25 11:28 Patient Tobacco Use Status Never used Tobacco 02/27/25 11:35 e-Cigarette/Vaping Use Never Used 02/27/25 11:35 PHQ-9: PHQ-9 Score PHQ-9: Total score 1 02/27/25 11:28 Depression Screening Interpretation: Negative Thrive Assessment: Date of Thrive Assessment Date Thrive assessed 02/27/25 02/27/25 11:28 Currently or been in a relationship where the following occur: No concerns reported Narrative Physical Exam General: Well-appearing, in no acute distress. Vital signs: Blood pressure is a little high, possibly due to nervousness. HEENT: Normocephalic, atraumatic. PERRLA, EOMI. Conjunctiva clear, sclera anicteric. Oropharynx clear, mucous membranes moist. TMs intact bilaterally. Patient reports blindness in one eye. Neck: Supple, no lymphadenopathy, no thyromegaly, no JVD or carotid bruits. Cardiovascular: RRR, normal S1/S2, no murmurs, rubs, or gallops. Peripheral pulses 2+ and symmetric. No edema. Respiratory: Lungs clear to auscultation bilaterally, no wheezes, rales, or rhonchi. Normal effort. Abdomen: Soft, non-tender, non-distended. Normoactive bowel sounds. No hepatosplenomegaly, no masses. MSK: Full range of motion, no joint swelling or deformity. Normal gait. Skin: Warm, dry, intact. No rashes, lesions, or pallor. palpable mass right side upper back erythematous rash in inguinal crease Neuro: Alert and oriented x3. Cranial nerves II-XII intact. Strength 5/5 throughout. Sensation intact. Reflexes 2+ symmetric. Normal coordination and gait. Psych: Appropriate mood and affect. Normal judgment and insight. Coding Level of Care Code New Pt Level 4 (05409) Diagnoses Class 2 obesity E66.812 Hypertension I10 Umbilical hernia K42.9 Recurrent umbilical hernia K42.9 Lipoma D17.9 Sleep apnea G47.30 Additional Codes EUGENIO-7 Assessment Billing - EUGENIO-7 Assessment Tool: EUGENIO-7 Assessment 22540 ([id number]) PHQ-9 - 93072 - PHQ-9 Billing: Yes ([id number]) Assessment & Plan Assessment & Plan (1) Class 2 obesity: Code(s): E66.812 - Obesity, class 2 Category: Medical (2) Hypertension: Code(s): I10 - Essential (primary) hypertension Category: Medical (3) Umbilical hernia: Code(s): K42.9 - Umbilical hernia without obstruction or gangrene Category: Medical (4) Recurrent umbilical hernia: Code(s): K42.9 - Umbilical hernia without obstruction or gangrene Category: Medical (5) Lipoma: Code(s): D17.9 - Benign lipomatous neoplasm, unspecified Category: Medical (6) Sleep apnea: Code(s): G47.30 - Sleep apnea, unspecified Category: Medical Plan Consent Patient was informed and verbally consented to the use of an ambient scribe for clinic note documentation during this visit. Plan 1. General Health Maintenance - Comprehensive lab work was ordered to establish a health panorama, including Vitamin D, hepatitis C, B, HIV, and a urine test. - A follow-up visit will be scheduled to discuss all test results. 2. Elevated Blood Pressure - Acknowledged the elevated reading, noting it could be due to nervousness. - Plan to monitor blood pressure, with consideration for sending the patient home with a machine for at-home readings. - The pressure will be discussed at the next visit. 3. Class Ii Obesity - The patient's BMI of 38.2 was identified as Class 2 obesity, which needs to be addressed. 4. Suspected Sleep Apnea - An at-home sleep study will be arranged to evaluate for sleep apnea. - The patient will be contacted to metal pickling equipment operator the equipment for the study. 5. Unspecified Skin Rash - Prescribed nystatin with triamcinolone cream, a combination steroid and antifungal, to be applied twice a day. Discussion Notes I discussed with the patient that the current blood pressure reading is a little high, but this could be related to nervousness from the visit; we will monitor this further. I explained that the patient's BMI of 38.2 qualifies as Class 2 obesity and is something we need to work on. To get a full health picture, I have ordered a panel of labs, including checks for Vitamin D, hepatitis B and C, and HIV, as well as a urine test. I informed the patient that I am arranging an at-home sleep study to investigate for sleep apnea. For a skin issue, I prescribed a combination cream containing nystatin and triamcinolone, to be used twice daily. In response to the lipoma I have ordered a sonography for further assessment. We will have a follow-up appointment to discuss all the results. Patient Instructions - Go to the lab to have your blood drawn for the tests that were ordered. - Expect to be called about scheduling an at-home sleep study. You will need to metal pickling equipment operator the equipment for this test. - Proceed with the sonography (ultrasound) that has been ordered for you at the [place] office. - Apply the prescribed Nystatin with Triamcinolone cream two times per day until your next visit. - It is recommended that you see an nutrition services assistant (a specialist eye doctor) for your vision. - We will schedule a follow-up visit to discuss your test results and blood pressure. Medical Decision Making The patient is a 39-year-old individual presenting for a general health evaluation after a two-year interval. The arriaga issues addressed were an elevated blood pressure reading, class II obesity, a history of lymphoma, and self-reported unilateral blindness. The elevated blood pressure may be reactive to the clinical setting, so home monitoring will be considered to rule out white coat hypertension before initiating treatment. The patient's BMI of 38.2 is a significant finding, raising concern for obesity-related comorbidities; therefore, an at-home sleep study is warranted to screen for obstructive sleep apnea. Given the history of lymphoma, a sonogram was ordered for reassessment. A cutaneous complaint was addressed empirically with a topical combination of nystatin and triamcinolone. A referral to ophthalmology was recommended for a comprehensive evaluation of the reported blindness, as the patient has only seen an magnesium mill operator. Baseline labs were ordered to provide a comprehensive metabolic and infectious disease overview. Follow-up will consolidate these findings to formulate a long-term management strategy. Total Time Statement 30 min Total time spent caring for the patient today includes pre-visit chart review, documentation, review of laboratory and diagnostic imaging results, medication reconciliation, medically necessary evaluation, counseling on diagnoses, care coordination, ordering appropriate tests and medications, review of tests performed by other providers, reporting test results to the patient, and communication with other healthcare providers. Orders: Orders Hepatitis C Antibody Today Z13.9 - Encounter for screening, unspecified HIV Ab/Ag Today Z13.9 - Encounter for screening, unspecified Lipid Panel Today Z13.9 - Encounter for screening, unspecified Vitamin B12 and Folate Today Z13.9 - Encounter for screening, unspecified Magnesium Today Z13.9 - Encounter for screening, unspecified RT home sleep study Today G47.30 - Sleep apnea, unspecified Complete Blood Count Auto Diff Today Z13.9 - Encounter for screening, unspecified Hepatitis B Surface Antigen Today Z13.9 - Encounter for screening, unspecified Syphilis Screen Today Z13.9 - Encounter for screening, unspecified Comprehensive Met. Panel Today Z13.9 - Encounter for screening, unspecified TSH reflex Free T4 Today Z13.9 - Encounter for screening, unspecified UA CC w/rflx Micro + Cult Today Z13.9 - Encounter for screening, unspecified Hemoglobin A1c Today Z13.9 - Encounter for screening, unspecified Vitamin D 1,25 dihydroxy Today Z13.9 - Encounter for screening, unspecified Hepatitis B Surface Antibody Today Z13.9 - Encounter for screening, unspecified Microalbumin, Random (w Creat) Today Z13.9 - Encounter for screening, unspecified US soft tissue chest Today D17.9 - Benign lipomatous neoplasm, unspecified Medications: New nystatin-triamcinolone 100,000-0.1 unit/gram-% 1 appl topical BID 60 grams 0RF L30.9 - Dermatitis, unspecified
== END 2025-02-27 12:05 | disposition home or self-care (01) ==
LOC: HO.HMCFMS 11:26
PROVIDERS: PCP Student in an Organized Health Care Education/Training Program; Visit Provider Student in an Organized Health Care Education/Training Program
DX: E66.812 Obesity, class 2 (principal); I10 Essential (primary) hypertension; K42.9 Umbilical hernia without obstruction or gangrene; D17.9 Benign lipomatous neoplasm, unspecified; G47.30 Sleep apnea, unspecified

== ENCOUNTER 2025-02-27 11:26 | Outpatient (REF) | payer OTHER, SELFPAY ==
--- OUTSIDE RECORDS SUMMARY | 2025-02-27 15:51 | XMS_ITS | Clinical Summary ---
Author Organization [facility] it Address [id number] [place] [id number] Care Team Providers Care Shipping Services Sales Representative Name Role Phone Hema Ochoa MD Primary Care Provider [phone] Surgical History Surgery Date Site/Laterality Comments WISDOM [...] Screening 05/04/2023 Depression Screening 04/05/2024 COVID-19 Vaccine (2024-2 6 season) 2024 Influenza Vaccine (#1) 2024 RSV [...] age to complete this topic Care Teams Shipping Services Sales Representative Relationship Specialty Start Date End Date Hema Ochoa MD [address] [id number] PCP - General Emergency Medicine 11/16/18
[2025-02-27 18:22] LABS: MANUAL DIFF FLAG NO
[2025-02-27 18:29] LABS: Hematocrit 45.0 % (42.0-52.0); Hemoglobin 14.6 g/dl (14.0-18.0); Imm Gran Abs Auto 0.02 X10*3/uL (0.00-0.03); Imm Gran Pct Auto 0.3 % (0.0-0.4); Lymphocytes Absolute Auto 2.1 X10*3/uL (1.2-4.9); Mean Corpuscular HGB Conc 32.4 g/dl (31.0-36.0); Mean Corpuscular Hemoglobin 29.6 pg (27.0-33.0); Mean Corpuscular Volume 91.1 fL (80.0-98.0); NRBC Abs Auto 0.000 X10*3/uL (0.0-0.012); NRBC Pct Auto 0.0 /100WBC (0.0-0.2); Platelet Count 283 X10*3/uL (160-400); Red Blood Count 4.94 X10*6/uL (4.60-5.80); White Blood Count 6.4 X10*3/uL (4.8-10.8)
[2025-02-27 18:45] LABS: Appearance Urine Turbid; Glucose Urine UA Negative (Negative); PH 5.5 (5.0-9.0); Specific Gravity - Urine 1.025 (1.005-1.025); UMIC TRIGGER UACC YES
[2025-02-27 18:56] LABS: Alanine Aminotransferase 20 U/L (0-40); Albumin Level 4.3 g/dL (3.5-5.0); Alkaline Phosphatase 57 U/L (39-117); Anion Gap 10 (12-20); Aspartate Amino Transferase 22 U/L (5-37); Blood Urea Nitrogen 12 mg/dL (9-16); Calcium 9.3 mg/dL (8.4-10.2); Carbon Dioxide 25 mmol/L (22-29); Chloride 111 mmol/L (96-108); Cholesterol 160 mg/dL (<200); Estimated Glomerular Filt Rate > 60; HDL Cholesterol 49 mg/dL (>40); Magnesium 2.1 mg/dL (1.6-2.6); Potassium 3.6 mmol/L (3.3-5.1); Sodium 142 mmol/L (135-145); Total Protein 7.1 g/dL (6.5-8.0); Triglycerides 96 mg/dL (<150)
[2025-02-27 19:14] LABS: Folate 9.7 ng/mL (> or = 4.0); Vitamin B12 262 pg/mL (200-900)
[2025-02-27 19:50] LABS: Microalbum/Creatinine Ratio Ur 4.9 ug/mg cr (<30)
[2025-02-28 05:09] LABS: Syphilis Screen Nonreactive (Nonreactive)
[2025-02-28 05:21] LABS: HBS Num1 1.65 mIU/mL (0-7.99); HBsAGNum1 0.25 S/CO (0.00-0.99); HIV Num 1 0.06 S/CO (0.00-0.99); Hepatitis B Surface Antigen Negative (Negative); ~HepC Num1 0.10 S/CO (0.00-0.79); ~Hepatitis B Surface Antibody NONREACTIVE (Nonreactive); ~Hepatitis C Antibody Nonreactive (Nonreactive)
[2025-03-04 15:12] LABS: VITAMIN D (1,25 OH) D3 55 pg/mL; Vit D (1,25-Dihydroxy) Total 55 pg/mL (18-72); Vitamin D (1,25 OH) D2 <8 pg/mL
== END 2025-02-27 11:27 | disposition home or self-care (01) ==
LOC: HO.HKASLDS 11:26
PROVIDERS: PCP Internal Medicine; Visit Provider Student in an Organized Health Care Education/Training Program
DX: Z13.9 Encounter for screening, unspecified (principal); E66.812 Obesity, class 2; I10 Essential (primary) hypertension; K42.9 Umbilical hernia without obstruction or gangrene; D17.9 Benign lipomatous neoplasm, unspecified; G47.30 Sleep apnea, unspecified; Z68.38 Body mass index [BMI] 38.0-38.9, adult
CPT/HCPCS: 36415; 80053; 80061; 81001; 82043; 82570; 82607; 82652; 82746; 83036; 83735; 84443; 85025; 86706; 86780; 86803; 87340; 87389

== ENCOUNTER 2025-03-15 10:38 | Outpatient (AMB) | payer OTHER, SELFPAY ==
[2025-03-15 10:41] VITALS: BP 159/70; PULSE 70; TEMP 36.9; O2SAT 97; BMI 38.4
--- NOTE | 2025-03-15 10:41 | A.OFFPC_ITS ---
Vital Signs 03/15/25 10:41 Height 5 ft 11 in Weight 275 lb BMI 38.4 BP 159/70 H Blood Pressure Location Lt brachial Position Sitting Pulse 70 Pulse Source Pulse Oximeter Temp 98.4 F Temp Source Oral Pulse Oximetry (%) 97 Oxygen Delivery Method Room Air Intake Visit Reasons: 2 week follow up [employer] Name: provider speaks kyrgyz Accompanied by: Self / Same As Patient Allergies No Known Allergies (No Known Allergies*) Allergy (Verified 03/15/25 10:42) Medication List - Last Reconciled 03/15/25 by Misael Lyons MD [blood pressure kit As directed] cyanocobalamin (vitamin B-12) 1,000 mcg sublingual DAILY nystatin-triamcinolone 100,000-0.1 unit/gram-% 1 appl topical BID Tobacco use date assessed: 03/15/25 Dental Screening Dental Screen Date: 03/15/25 Did you have a dental visit in the last 12 months?: Yes HPI HPI Comments History of Present Illness Details History of Present Illness The patient is a 39 year old male presenting for follow-up to review lab results and manage his elevated blood pressure. Elevated blood pressure: The patient's blood pressure reading during this visit was 158/75 mmHg. He does not have a prior history of high blood pressure. Vitamin B12 deficiency: The patient's recent lab results showed a vitamin B12 level of 262, which is at the low end of the normal range of 200-900. Medications: - The patient was previously given a cre am, which provided help . Diagnostic Results: - Complete Blood Count (CBC): White bloo d cells, red blood cells, hemoglobin, hematocrit, and platelets were normal. - Comprehensive Metabolic Panel (CMP): S odium, potassium, kidney function, glucose, calcium, and magnesium were normal. - Liver function tests were normal. - Lipid Panel: Cholesterol, including HD L, LDL, and triglycerides, were normal. - Vitamin B12: 262 (Normal range 200-900 ). - Vitamin D and Folate: Normal. - Thyroid function tests: Normal. - Urinalysis: Normal. - Syphilis, Hepatitis B, Hepatitis C, an d HIV tests were negative. Past Medical History - The patient denies a history of high b lood pressure. Health Maintenance - The patient will receive an influenza vaccination during this visit. [facility] Medical History (Updated 03/15/25 @ 22:06 by Misael Lyons MD) Low vitamin B12 level Class 2 obesity Lipoma Sleep apnea Recurrent umbilical hernia Morbid obesity with body mass index (BMI) of 40.0 or higher Hypertension Hernia Surgical History History of hernia surgery Social History Housing: Apartment Alcohol intake: never Patient Tobacco Use Status: Never used Tobacco e-Cigarette/Vaping Use: Never Used Second Hand Smoke Exposure: No service: No Current occupational status: employed Current occupational exposures/hazards: No Cognitive needs: No Hearing needs: No Vision needs: No Questionnaire PHQ-9 Over the last 2 weeks, how often have you been bothered by any of the following problems? 1. Little interest or pleasure in doing things: not at all 2. Feeling down, depressed, or hopeless: not at all 3. Trouble falling or staying asleep, or sleeping too much: not at all 4. Feeling tired or having little energy: several days 5. Poor appetite or overeating: not at all 6. Feeling bad about yourself - or that you are a failure or have let yourself or your family down: not at all 7. Trouble concentrating on things, such as reading the newspaper or watching television: not at all 8. Moving or speaking so slowly that other people could have noticed. Or the opposite - being so fidgety or restless that you have been moving around a lot more than usual: not at all 9. Thoughts that you would be better off or of hurting yourself in some way: not at all Total score: 1 Depression Screening Interpretation: Negative Depression Screening Done: Yes 58235 - PHQ-9 Billing: Yes Source: Developed by Drs. Florentin Regan, Patsy Marquez, Serge Rob and colleagues, with an educational sanjeev from [employer]. Thrive Questionnaire Date Thrive assessed: 03/15/25 I am a: Patient What is your living situation today?: I have a steady place to live Within the past 12 months, did the food you bought not last and you didn't have the money to get more?: I choose not to answer this question Within the past 12 months, did you worry whether your food would run out before you got money to buy more?: I choose not to answer this question Do you have trouble paying for medicines?: No Do you have trouble getting transportation to medical appointments?: No Do you have trouble paying your heating and electricity bill?: No Do you have trouble taking care of your child, family member or friend?: No Do you have trouble with day-to-day activities such as bathing, preparing meals, shopping, managing finances, etc.?: No Are you currently unemployed and looking for a job?: No Are you interested in more education?: Yes Please select the resources that you would like help with: None Currently or been in a relationship where the following occur: No concerns reported THRIVE Score: 0 AUDIT C Alcohol Use Questionnaire (AUDIT-C) 1. How often do you have a drink containing alcohol?: Never 3. How often do you have six or more drinks on one occasion?: Never Total Score: 0 EUGENIO-7 AMB Questionnaire EUGENIO-7 Date EUGENIO - 7 assessed: 02/27/25 Feeling nervous, anxious, or on edge: 0 = Not at all Not being able to stop or control worryin = Not at all Worrying too much about different things: 0 = Not at all Trouble relaxin = Not at all Being so restless that it is hard to sit still: 0 = Not at all Becoming easily annoyed or irritable: 0 = Not at all Feeling afraid as if something awful might happen: 0 = Not at all Total EUGENIO-7 score (0-4 normal; 5-9 mild; 10-14 moderate; 15-21 severe): 0 Source: Developed by Drs. Florentin Regan, Patsy Marquez, Serge Rob and colleagues, with an educational sanjeev from [employer]. EUGENIO-7 Assessment Billing EUGENIO-7 Assessment Tool: EUGENIO-7 Assessment 90270 Review of Systems Narrative Review of Systems - Neurological: Reports feeling nervous in the clinical setting. 10-point ROS reviewed and negative except as noted in HPI Physical exam (Primary Care) Vital Signs: Last Vital Signs Temp 98.4 F 03/15/25 10:41 Pulse 70 03/15/25 10:41 BP 159/70 H 03/15/25 10:41 Pulse Ox 97 03/15/25 10:41 Oxygen Delivery Method Room Air 03/15/25 10:41 BMI result Body Mass Index 38.4 Tobacco/Smoking Status: Tobacco use Status Tobacco use date assessed 03/15/25 03/15/25 10:47 Patient Tobacco Use Status Never used Tobacco 03/15/25 10:47 e-Cigarette/Vaping Use Never Used 03/15/25 10:47 PHQ-9: PHQ-9 Score PHQ-9: Total score 1 03/15/25 11:17 Depression Screening Interpretation: Negative Thrive Assessment: Date of Thrive Assessment Date Thrive assessed 03/15/25 03/15/25 10:47 Currently or been in a relationship where the following occur: No concerns reported Narrative Physical Exam General: Well-appearing, in no acute distress. Vital signs: Blood pressure recorded at 158/75. HEENT: Normocephalic, atraumatic. PERRLA, EOMI. Conjunctiva clear, sclera anicteric. Oropharynx clear, mucous membranes moist. TMs intact bilaterally. Neck: Supple, no lymphadenopathy, no thyromegaly, no JVD or carotid bruits. Cardiovascular: RRR, normal S1/S2, no murmurs, rubs, or gallops. Peripheral pulses 2+ and symmetric. No edema. Respiratory: Lungs clear to auscultation bilaterally, no wheezes, rales, or rhonchi. Normal effort. Abdomen: Soft, non-tender, non-distended. Normoactive bowel sounds. No hepatosplenomegaly, no masses. MSK: Full range of motion, no joint swelling or deformity. Normal gait. Skin: Warm, dry, intact. No rashes, lesions, or pallor. Neuro: Alert and oriented x3. Cranial nerves II-XII intact. Strength 5/5 throughout. Sensation intact. Reflexes 2+ symmetric. Normal coordination and gait. Psych: Appropriate mood and affect. Normal judgment and insight. Office Procedures Flu Questionnaire Does the patient have a severe egg allergy?: No Does the patient have severe life threatening allergies?: No Does the patient have a fever or illness today?: No Has the patient ever had Guillain-Brookston Syndrome?: No Has the patient ever had any past reaction to a flu shot?: No Immunizations Fluarix [id number] (PF) 45 mcg (15 mcg x 3)/0.5 mL IM syringe Performing Provider: Misael Lyons MD Performing Location: [facility] [place] [facility] Administered by: Steph Handy CMA on 03/15/25 11:17 Dose Route Admin Location Dispensed Lot Number Expiration Date NDC Newspaper Subscription Solicitor 0.5 mL IM Left Deltoid 0.5 mL [id number] 10/02/25 [id number] [employer] VIS Given Date VIS Provided VIS Publication Date 03/15/25 Single Vaccine 24 Eligibility Eligibility Date Funding Source Not [facility] Eligible 03/15/25 Private Coding Level of Care Code Est Pt Level 3 (41677) Add On Problem Visit Only Diagnoses Essential hypertension I10 Class 2 obesity E66.812 Low vitamin B12 level R79.89 Additional Codes EUGENIO-7 Assessment Billing - EUGENIO-7 Assessment Tool: EUGENIO-7 Assessment 53023 ([id number]) PHQ-9 - 53764 - PHQ-9 Billing: Yes ([id number]) Assessment & Plan Assessment & Plan (1) Essential hypertension: Code(s): I10 - Essential (primary) hypertension Category: Medical (2) Class 2 obesity: Code(s): E66.812 - Obesity, class 2 Category: Medical (3) Low vitamin B12 level: Code(s): R79.89 - Other specified abnormal findings of blood chemistry Category: Medical Plan Consent Patient was informed and verbally consented to the use of an ambient scribe for clinic note documentation during this visit. Plan 1. Elevated Blood Pressure Reading - To determine if the patient has true hypertension versus white coat hypertension, he will be provided with a home blood pressure machine. - The patient is to monitor his blood pressure at home and return in two weeks to review the readings. - A decision on initiating antihypertensive medication will be made at the follow-up appointment. 2. Vitamin B12 Deficiency - A prescription for vitamin B12 supplementation will be sent to the pharmacy. - The patient is instructed to take one tablet every night to help increase his energy levels. Discussion Notes I reviewed the patient's lab results with him, which were largely normal except for a low-normal vitamin B12 level. I explained that I will prescribe a vitamin B12 supplement to be taken nightly, which should help improve his energy levels. We discussed his elevated blood pressure reading of 158/75 mmHg. I noted his lack of a prior hypertension diagnosis and the possibility that this elevation could be due to anxiety in the clinic. To clarify the diagnosis, I informed him that we will provide a home blood pressure machine for him to monitor his readings for two weeks, after which we will decide whether to start medication. He also consented to receiving the influenza vaccine today. The patient stated he had no questions for me. Patient Instructions - You will be given a blood pressure machine to take home. Staff will tell you where to pick it up. - Please check your blood pressure at home and return to the clinic in two weeks to share your readings. We will then decide if you need blood pressure medication. - A prescription for vitamin B12 has been sent to your pharmacy. Take one tablet every night to help with your energy levels. - You will receive your flu shot today before you leave. Medical Decision Making The patient, a 39-year-old male with no prior history of hypertension, presented with a blood pressure reading of 158/75 mmHg. Given the possibility of white coat hypertension, a definitive diagnosis requires further evaluation. The plan is to defer initiation of antihypertensive medication pending a two-week period of home blood pressure monitoring. This approach will allow for a more accurate assessment and will guide the decision on whether medication is necessary. Lab results revealed a low-normal vitamin B12 level of 262. To address this and potentially improve his energy levels, supplementation with [id number] vitamin B12 is indicated. All other lab work, including metabolic panel, lipids, and infectious disease screening, was unremarkable. The patient also agreed to receive the influenza vaccine for preventative care. Total Time Statement 20 min Total time spent caring for the patient today includes pre-visit chart review, documentation, review of laboratory and diagnostic imaging results, medication reconciliation, medically necessary evaluation, counseling on diagnoses, care coordination, ordering appropriate tests and medications, review of tests performed by other providers, reporting test results to the patient, and communication with other healthcare providers. Orders: Orders Influenza [id number] Immunization Today Z23 - Encounter for immunization Medications: New cyanocobalamin (vitamin B-12) 1,000 mcg sublingual DAILY 90 tabs 0RF [blood pressure kit] As directed 1 ea 0RF I10 - Essential (primary) hypertension
== END 2025-03-15 11:02 | disposition home or self-care (01) ==
LOC: HO.HMCFMS 10:39
PROVIDERS: PCP Student in an Organized Health Care Education/Training Program; Visit Provider Student in an Organized Health Care Education/Training Program
DX: I10 Essential (primary) hypertension (principal); E66.812 Obesity, class 2; R79.89 Other specified abnormal findings of blood chemistry; Z23 Encounter for immunization

== ENCOUNTER → 2025-03-15 10:38 | Outpatient (BNVA) | payer OTHER, SELFPAY | PROVIDERS: PCP Internal Medicine; Visit Provider Student in an Organized Health Care Education/Training Program | DX: Z23 Encounter for immunization (principal); I10 Essential (primary) hypertension; E66.812 Obesity, class 2; Z68.34 Body mass index [BMI] 34.0-34.9, adult; R79.89 Other specified abnormal findings of blood chemistry; Z71.3 Dietary counseling and surveillance | CPT/HCPCS: 90471; 90656; 96127; 99212 ==

== ENCOUNTER 2025-04-03 14:58 | Outpatient (AMB) | payer OTHER, SELFPAY ==
--- NOTE | 2025-04-03 15:17 | A.OFFPC_ITS ---
Vital Signs 04/03/25 15:20 Height 5 ft 11 in Weight 272 lb 6 oz BMI 38.0 BP 163/87 H Blood Pressure Location Rt brachial Position Sitting Respiration 18 Pulse 75 Pulse Source Pulse Oximeter Temp 98.1 F Temp Source Oral Pulse Oximetry (%) 97 Oxygen Delivery Method Room Air Intake Visit Reasons: 2 week follow up Intake Note: Patient present for follow up. [employer] Combination Required: No Accompanied by: Self / Same As Patient Allergies No Known Allergies (No Known Allergies*) Allergy (Verified 04/03/25 15:19) Medication List - Last Reconciled 04/04/25 by Misael Lyons MD amlodipine 10 mg PO DAILY [blood pressure kit As directed] cyanocobalamin (vitamin B-12) 1,000 mcg sublingual DAILY nystatin-triamcinolone 100,000-0.1 unit/gram-% 1 appl topical BID Tobacco use date assessed: 03/15/25 Dental Screening Dental Screen Date: 03/15/25 HPI HPI Comments History of Present Illness Details History of Present Illness The patient is a 39 year old male presenting for evaluation of new-onset hypertension as well as a refill for a cream. Hypertension: The patient reported a terrible headache the day prior to the visit, at which time he checked his blood pressure and found it to be elevated systolic in the 170s He also reports fatigue He believes his weight is a contributing factor to his elevated blood pressure. Skin Condition, Intertrigo: The patient is currently using an Nystatin/Triamcinalone cream for a skin condition and requested a refill. Obesity: The patient notes that his weight has increased and believes this is contributing to his elevated blood pressure and shortness of breath. Medications: - antifungal/steroid cream Social History: - Exercise: The patient was advised to s tart exercising. - Diet: The patient was advised to aleman e his eating habits and will be referred to a cessation systems outreach specialist. Past Medical History - Intertrigo, treated with a topical cre am. Health Maintenance - The patient was counseled on lifestyle modifications, including starting regular exercise and dietary changes, to help manage his blood pressure and weight. - A referral to a cessation systems outreach specialist was order ed to provide dietary recommendations. REPLACED BY [facility] Medical History Low vitamin B12 level Class 2 obesity Lipoma Sleep apnea Recurrent umbilical hernia Morbid obesity with body mass index (BMI) of 40.0 or higher Hypertension Hernia Surgical History History of hernia surgery Social History (Updated 04/03/25 @ 15:19 by Saul Cowan CMA) Housing: Apartment Alcohol intake: never Patient Tobacco Use Status: Never used Tobacco e-Cigarette/Vaping Use: Never Used Second Hand Smoke Exposure: No service: No Current occupational status: employed Current occupational exposures/hazards: No Cognitive needs: No Hearing needs: No Vision needs: No Questionnaire Thrive Questionnaire Date Thrive assessed: 02/27/25 I am a: Patient What is your living situation today?: I have a steady place to live Within the past 12 months, did the food you bought not last and you didn't have the money to get more?: I choose not to answer this question Within the past 12 months, did you worry whether your food would run out before you got money to buy more?: I choose not to answer this question Do you have trouble paying for medicines?: No Do you have trouble getting transportation to medical appointments?: No Do you have trouble paying your heating and electricity bill?: No Do you have trouble taking care of your child, family member or friend?: No Do you have trouble with day-to-day activities such as bathing, preparing meals, shopping, managing finances, etc.?: No Are you currently unemployed and looking for a job?: No Are you interested in more education?: Yes Currently or been in a relationship where the following occur: No concerns reported THRIVE Score: 0 EUGENIO-7 AMB Questionnaire EUGENIO-7 Date EUGENIO - 7 assessed: 02/27/25 Source: Developed by Drs. Florentin Regan, Patsy Marquez, Serge Rob and colleagues, with an educational sanjeev from [employer]. Review of Systems Narrative Review of Systems - Neurological: Reports a terrible headache yesterday. - Respiratory: Reports getting out of breath. - General: Reports being overweight. 10-point ROS reviewed and negative except as noted in HPI Physical exam (Primary Care) Vital Signs: Last Vital Signs Temp 98.1 F 04/03/25 15:20 Pulse 75 04/03/25 15:20 Resp 18 04/03/25 15:20 BP 163/87 H 04/03/25 15:20 Pulse Ox 97 04/03/25 15:20 Oxygen Delivery Method Room Air 04/03/25 15:20 BMI result Body Mass Index 38.0 Tobacco/Smoking Status: Tobacco use Status Tobacco use date assessed 03/15/25 04/03/25 15:18 Patient Tobacco Use Status Never used Tobacco 04/03/25 15:19 e-Cigarette/Vaping Use Never Used 04/03/25 15:19 Thrive Assessment: Date of Thrive Assessment Date Thrive assessed 02/27/25 04/03/25 15:18 Currently or been in a relationship where the following occur: No concerns reported Narrative Physical Exam General: Well-appearing, in no acute distress. Vital signs: Blood pressure noted to be elevated, in the 70s/110s. HEENT: Normocephalic, atraumatic. PERRLA, EOMI. Conjunctiva clear, sclera anicteric. Oropharynx clear, mucous membranes moist. TMs intact bilaterally. Neck: Supple, no lymphadenopathy, no thyromegaly, no JVD or carotid bruits. Cardiovascular: RRR, normal S1/S2, no murmurs, rubs, or gallops. Peripheral pulses 2+ and symmetric. No edema. Respiratory: Lungs clear to auscultation bilaterally, no wheezes, rales, or rhonchi. Normal effort. Abdomen: Soft, non-tender, non-distended. Normoactive bowel sounds. No hepatosplenomegaly, no masses. MSK: Full range of motion, no joint swelling or deformity. Normal gait. Skin: Warm, dry, intact. + rash under pannus ,- lesions, or pallor. Neuro: Alert and oriented x3. Cranial nerves II-XII intact. Strength 5/5 throughout. Sensation intact. Reflexes 2+ symmetric. Normal coordination and gait. Psych: Appropriate mood and affect. Normal judgment and insight. Coding Level of Care Code Est Pt Level 3 (34625) Add On Problem Visit Only Diagnoses Hypertension I10 Class 2 obesity E66.812 Low vitamin B12 level R79.89 Morbid obesity with body mass index (BMI) of 40.0 or higher E66.01 Intertrigo L30.4 Assessment & Plan Assessment & Plan (1) Hypertension: Code(s): I10 - Essential (primary) hypertension Category: Medical (2) Class 2 obesity: Code(s): E66.812 - Obesity, class 2 Category: Medical (3) Low vitamin B12 level: Code(s): R79.89 - Other specified abnormal findings of blood chemistry Category: Medical (4) Morbid obesity with body mass index (BMI) of 40.0 or higher: Code(s): E66.01 - Morbid (severe) obesity due to excess calories Category: Medical (5) Intertrigo: Code(s): L30.4 - Erythema intertrigo Category: Medical Plan Consent No procedures requiring formal consent were discussed or performed during the visit. Patient was informed and verbally consented to the use of an ambient scribe for clinic note documentation during this visit. Plan 1. Hypertension - A 30-day prescription for amlodipine 10 mg was sent to the pharmacy. - The patient was counseled that amlodipine may cause constipation or ankle swelling. - The patient was advised to continue monitoring his blood pressure. - A follow-up visit is scheduled in two weeks to re-evaluate his blood pressure. 2. Obesity - A referral will be sent for the patient to meet with a cessation systems outreach specialist for recommendations on diet. - The patient was advised to start exercising and change his eating habits. 3. intertrigo - A refill of the patient's antifungal/steroid cream was sent to the pharmacy. Discussion Notes I discussed with the patient his recent episode of headache and elevated blood pressure. I have started him on amlodipine 10mg and counseled him on potential side effects, including constipation and ankle swelling. We discussed the importance of lifestyle changes, and I am referring him to a cessation systems outreach specialist to address diet, with a recommendation to also begin exercising. I also provided a refill for his topical cream and recommended a follow-up in two weeks to review his blood pressure readings. Patient Instructions - Start taking amlodipine 10 mg once daily for your blood pressure. - Continue to check your blood pressure at home. - This medication may cause constipation or some ankle swelling. - A refill for your cream has been sent to the pharmacy. - We will send a referral for you to see a cessation systems outreach specialist to get advice on your diet. - Please schedule a follow-up appointment in two weeks to check on your blood pressure. Medical Decision Making The patient is a 39-year-old male presenting with a report of a severe headache and a self-measured elevated blood pressure from the previous day. He also reports dyspnea and attributes his symptoms to being overweight. Given the reported symptoms and blood pressure, I am initiating antihypertensive therapy with amlodipine 10mg. The patient has been counseled on common side effects, including constipation and peripheral edema. Because his obesity is a significant contributing factor, a referral to a cessation systems outreach specialist is warranted to support lifestyle modification through diet and exercise. A follow-up in two weeks will allow for assessment of the medication's efficacy and tolerance. A refill for his unspecified topical cream was also provided per his request. Total Time Statement 20 min Total time spent caring for the patient today includes pre-visit chart review, documentation, review of laboratory and diagnostic imaging results, medication reconciliation, medically necessary evaluation, counseling on diagnoses, care coordination, ordering appropriate tests and medications, review of tests p erformed by other providers, reporting test results to the patient, and communication with other healthcare providers. Medications: New amlodipine 10 mg PO DAILY 90 tabs 0RF Refilled nystatin-triamcinolone 100,000-0.1 unit/gram-% 1 appl topical BID 60 grams 0RF L30.9 - Dermatitis, unspecified
[2025-04-03 15:20] VITALS: BP 163/87; PULSE 75; RESP 18; TEMP 36.7; O2SAT 97; BMI 38.0
--- OUTSIDE RECORDS SUMMARY | 2025-04-03 18:33 | XMS_ITS | Clinical Summary ---
Author Organization [facility] it Address [id number] [place] [id number] Care Team Providers Care Risk Management Internship Name Role Phone Hema Ochoa MD Primary Care Provider [phone] Surgical History Surgery Date Site/Laterality Comments WISDOM [...] on file Sexual Orientation Not on file Plan of Treatment Health Maintenance Due Date [...] age to complete this topic Care Teams Risk Management Internship Relationship Specialty Start Date End Date Hema Ochoa MD [address] [id number] PCP - General Emergency Medicine 11/16/18
== END 2025-04-03 15:32 | disposition home or self-care (01) ==
LOC: HO.HMCFMS 14:59
PROVIDERS: PCP Internal Medicine; Visit Provider Student in an Organized Health Care Education/Training Program
DX: I10 Essential (primary) hypertension (principal); E66.812 Obesity, class 2; R79.89 Other specified abnormal findings of blood chemistry; E66.01 Morbid (severe) obesity due to excess calories; L30.4 Erythema intertrigo

== ENCOUNTER → 2025-04-03 14:58 | Outpatient (BNVA) | payer OTHER, SELFPAY | PROVIDERS: PCP Internal Medicine; Visit Provider Student in an Organized Health Care Education/Training Program | DX: I10 Essential (primary) hypertension (principal); R79.89 Other specified abnormal findings of blood chemistry; L30.4 Erythema intertrigo; E66.812 Obesity, class 2; E66.01 Morbid (severe) obesity due to excess calories; Z68.38 Body mass index [BMI] 38.0-38.9, adult; Z71.3 Dietary counseling and surveillance | CPT/HCPCS: 99212 ==